=== PATIENT | female | born 1965 | race Caucasian/White ===

== ENCOUNTER 2022-11-28 07:41 | Outpatient (AMB) | payer BC, SELFPAY ==
--- NOTE | 2022-11-28 07:43 | A.OFFPC_ITS ---
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 Allergies Penicillins Allergy (Verified 11/28/22 07:47) patient does not remember Medication List - Last Reconciled 11/28/22 by Nirmala Merrill MD lisinopril 10 mg PO DAILY montelukast 10 mg PO DAILY Tobacco use date assessed: 11/28/22 Dental Screening Dental Screen Date: 11/28/22 Did you have a dental visit in the last 12 months?: Yes Did you have a dental problem in the last 6 months where you did not have access to dental care?: No Was dental information given to patient?: Patient has dentist HPI HPI Comments History of Present Illness Details Patient presents for new patient physical. She moved from [place] a year ago. She has a history of hypertension has not been compliant taking medications regularly. Patient also reports history of obstructive sleep apnea but has not been using her CPAP machine for 2 years because it was recalled. Patient complains of insomnia and used to take clonazepam but has not been taking it for the last year. Patient denies anxiety or depression. 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 1. Little interest or pleasure in doing things: several days 2. Feeling down, depressed, or hopeless: not at all 3. Trouble falling or staying asleep, or sleeping too much: nearly every day 4. Feeling tired or having little energy: nearly every day 5. Poor appetite or overeating: several days 6. Feeling bad about yourself - or that you are a failure or have let yourself or your family down: not at all 7. Trouble concentrating on things, such as reading the newspaper or watching television: not at all 8. Moving or speaking so slowly that other people could have noticed. Or the opposite - being so fidgety or restless that you have been moving around a lot more than usual: not at all 9. Thoughts that you would be better off or of hurting yourself in some way: not at all Total score: 8 Depression Screening Interpretation: Negative Source: Developed by Drs. Brandon Duffy, Maria Victoria Lynch, Holland Taveras and colleagues, with an educational fernando from [employer]. Thrive Questionnaire Date Thrive assessed: 11/28/22 I am a: Patient What is your living situation today?: I have a steady place to live Within the past 12 months, did the food you bought not last and you didn't have the money to get more?: Never true Within the past 12 months, did you worry whether your food would run out before you got money to buy more?: Never true Do you have trouble paying for medicines?: No Do you have trouble getting transportation to medical appointments?: No Do you have trouble paying your heating and electricity bill?: No Do you have trouble taking care of your child, family member or friend?: No Do you have trouble with day-to-day activities such as bathing, preparing meals, shopping, managing finances, etc.?: No Are you currently unemployed and looking for a job?: No Are you interested in more education?: No Please select the resources that you would like help with: None Currently or been in a relationship where the following occur: no concerns reported AUDIT C Alcohol Use Questionnaire (AUDIT-C) 1. How often do you have a drink containing alcohol?: 2-3 times a week 2. How many drinks containing alcohol do you have on a typical day when you are drinking?: 1 or 2 3. How often do you have six or more drinks on one occasion?: Never Total Score: 3 MAIK-7 AMB Questionnaire MAIK-7 Date MAIK - 7 assessed: 11/28/22 Feeling nervous, anxious, or on edge: 1 = Several days Not being able to stop or control worryin = Not at all Worrying too much about different things: 0 = Not at all Trouble relaxin = Several days Being so restless that it is hard to sit still: 0 = Not at all Becoming easily annoyed or irritable: 1 = Several days Feeling afraid as if something awful might happen: 0 = Not at all Total MAIK-7 score (0-4 normal; 5-9 mild; 10-14 moderate; 15-21 severe): 3 Source: Developed by Drs. Brandon Duffy, Maria Victoria Lynch, Holland Taveras and colleagues, with an educational fernando from [employer]. Review of Systems Const All systems reviewed & are unremarkable except as noted in HPI and below Reports no additional complaints Eyes Reports no additional complaints ENT Reports no additional complaints Card Reports no additional complaints Resp Reports no additional complaints GI Reports no additional complaints Reports no additional complaints Musc Reports no additional complaints Physical exam (Primary Care) Vital Signs: Last Vital Signs Pulse 88 11/28/22 07:44 BP 154/94 H 11/28/22 07:44 Pulse Ox 99 11/28/22 07:44 Oxygen Delivery Method Room Air 11/28/22 07:44 BMI result Body Mass Index 35.4 Tobacco/Smoking Status: Tobacco use Status Tobacco use date assessed 11/28/22 11/28/22 07:56 Patient Tobacco Use Status Current everyday Tobacco 11/28/22 08:18 Tobacco use type Cigarette 11/28/22 08:18 e-Cigarette/Vaping Use Former Use 11/28/22 08:18 PHQ-9: PHQ-9 Score PHQ-9: Total score 8 11/28/22 09:54 Depression Screening Interpretation: Negative Thrive Assessment: Date of Thrive Assessment Date Thrive assessed 11/28/22 11/28/22 07:56 Currently or been in a relationship where the following occur: no concerns reported Const General: no acute distress HENMT Head: Yes normal to inspection Ears: hearing grossly normal bilaterally General nose exam: Normal external nose present Mouth: Normal oral and palatal mucosa present Throat: Yes posterior oropharynx normal Eyes General: appearance normal, both eyes and all related structures Neck Neck: Yes no lymphadenopathy and Yes supple Resp Effort & Inspection: normal respiratory effort Auscultation: clear to auscultation bilaterally Cardio Rhythm: regular rhythm Heart sounds: S1 normal heart sound present and S2 normal heart sound present GI Inspection: Yes normal to inspection Palpation (GI): Soft to palpation Percussion: Yes normal to percussion Auscultation: normal bowel sounds Speculum Exam - Vagina: normal appearance of the vagina Speculum Exam - Cervix: normal appearance of the cervix Bimanual exam- vagina & uterus: normal bimanual exam Assessment and Plan Assessment & Plan (1) HTN (hypertension): Code(s): I10 - Essential (primary) hypertension Plan: Start amlodipine benazepril 5/20 daily. Low-sodium diet increase physical activity discussed with the patient . she will follow-up in 1 month (2) Insomnia: Code(s): G47.00 - Insomnia, unspecified Plan: Sleep hygiene discussed with the patient she will be referred to sleep medicine (3) Abnormal Pap smear of cervix: Comment: 2019 , negative afterwards Code(s): R87.619 - Unspecified abnormal cytological findings in specimens from cervix uteri Plan: Pap smear was done today (4) Hx of colonoscopy: Comment: colonoscopy 2019, obtain records from [place] Code(s): Z98.890 - Other specified postprocedural states Plan: Obtain records from [place] (5) Tobacco dependence: Comment: 1 PPD X 40 YRS Code(s): F17.200 - Nicotine dependence, unspecified, uncomplicated Plan: Tobacco quitting discussed with the patient she will be referred to lung cancer screening program (6) Sleep apnea: Code(s): G47.30 - Sleep apnea, unspecified Plan: Obtain sleep studies and referred to sleep medicine (7) Annual physical exam: Code(s): Z00.00 - Encounter for general adult medical examination without abnormal findings Plan: Well-balanced diet regular physical activity discussed with the patient. Ruby mogram will be scheduled. Cutting down on alcohol use discussed with the patient Orders: Orders Vitamin B12 and Folate Today F17.200 - Nicotine dependence, unspecified, uncomplicated Comprehensive [place]. Panel Fast Today F17.200 - Nicotine dependence, unspecified, uncomplicated Lipid Panel Today F17.200 - Nicotine dependence, unspecified, uncomplicated TSH reflex Free T4 Today F17.200 - Nicotine dependence, unspecified, uncomplicated Complete Blood Count Auto Diff Today F17.200 - Nicotine dependence, unspecified, uncomplicated UA CC w/rflx Micro + Cult Today F17.200 - Nicotine dependence, unspecified, uncomplicated MM screening mammo BI Today Z12.31 - Encounter for screening mammogram for malignant neoplasm of breast RT home sleep study Today G47.30 - Sleep apnea, unspecified Pap Smear Today F17.200 - Nicotine dependence, unspecified, uncomplicated Referrals Sleep Medicine Referral G47.00 - Insomnia, unspecified, G47.30 - Sleep apnea, unspecified Thoracic Surgery Referral F17.200 - Nicotine dependence, unspecified, uncomplicated Medications: New amlodipine-benazepril 5-20 mg 1 cap PO DAILY 30 caps 1RF Coding Level of Care Code New Pt Prev Care 40-64y(64443) Diagnoses HTN (hypertension) I10 Insomnia G47.00 Abnormal Pap smear of cervix R87.619 Hx of colonoscopy Z98.890 Tobacco dependence F17.200 Sleep apnea G47.30 Annual physical exam Z00.00
[2022-11-28 07:44] VITALS: BP 154/94; PULSE 88; O2SAT 99; BMI 35.4
== END 2022-11-28 08:58 | disposition home or self-care (01) ==
PROVIDERS: Visit Provider Internal Medicine
DX: Z00.00 Encounter for general adult medical examination without abnormal findings (principal); I10 Essential (primary) hypertension; G47.00 Insomnia, unspecified; R87.619 Unspecified abnormal cytological findings in specimens from cervix uteri; Z98.890 Other specified postprocedural states; F17.200 Nicotine dependence, unspecified, uncomplicated; G47.30 Sleep apnea, unspecified
CPT/HCPCS: 99386

== ENCOUNTER 2022-11-28 08:42 | Outpatient (REF) | payer BC, SELFPAY ==
[2022-12-05 21:14] LABS: HPV mRNA E6/E7 Not Detected (Not Detected)
== END 2022-11-28 08:43 | disposition home or self-care (01) ==
LOC: HO.LNP 08:42
PROVIDERS: Visit Provider Internal Medicine
DX: Z12.4 Encounter for screening for malignant neoplasm of cervix (principal)
CPT/HCPCS: 87624; 88142

== ENCOUNTER 2022-11-28 08:54 | Outpatient (REF) | payer BC, SELFPAY ==
[2022-11-28 11:19] LABS: MANUAL DIFF FLAG NO
[2022-11-28 11:29] LABS: Appearance Urine Clear; Color Urine Dark Yellow; Glucose Urine UA Negative (Negative); Leukocyte Esterase Urine Negative (Negative); Nitrite Urine Negative (Negative); PH 5.5 (5.0-9.0); Specific Gravity - Urine 1.025 (1.005-1.025); Urine Blood Negative (Negative); Urine Ketones 15 mg/dL (Negative); Urine Protein Trace mg/dL (Neg-Trace)
[2022-11-28 11:56] LABS: Basophils Absolute Auto 0.1 X10*3/uL (0.0-0.2); Basophils Percent Auto 1.8 % (0-2); Eosinophils Absolute Auto 0.1 X10*3/uL (0.0-0.4); Eosinophils Percent Auto 2.2 % (0-4); Hematocrit 49.3 % (37.0-47.0); Hemoglobin 16.5 g/dl (12.0-16.0); Imm Gran Abs Auto 0.02 X10*3/uL (0.00-0.03); Imm Gran Pct Auto 0.3 % (0.0-0.4); Lymphocytes Absolute Auto 1.8 X10*3/uL (1.2-4.9); Lymphocytes Percent Auto 27.6 % (20-40); Mean Corpuscular HGB Conc 33.5 g/dl (31.0-35.0); Mean Corpuscular Hemoglobin 32.5 pg (27.0-33.0); Mean Platelet Volume 11.9 fL (9.4-12.3); Monocytes Absolute Auto 0.6 X10*3/uL (0.1-1.2); Monocytes Percent Auto 9.4 % (2-11); Neutrophils Absolute Auto 3.8 x10*3/uL (2.0-8.3); Neutrophils Percent Auto 58.7 % (45-73); Platelet Count 194 X10*3/uL (160-400); Red Blood Count 5.08 X10*6/uL (4.20-5.50); Red Cell Distribution Width 12.9 % (11.0-16.0); White Blood Count 6.5 X10*3/uL (4.8-10.8)
[2022-11-28 13:30] LABS: Folate 6.6 ng/mL (> or = 4.0); Vitamin B12 512 pg/mL (200-900)
[2022-11-28 14:00] LABS: Alanine Aminotransferase 227 U/L (0-31); Albumin Level 4.5 g/dL (3.5-5.0); Alkaline Phosphatase 81 U/L (39-117); Anion Gap 15 (12-20); Aspartate Amino Transferase 176 U/L (5-31); Blood Urea Nitrogen 10 mg/dL (9-16); Calcium 9.9 mg/dL (8.4-10.2); Carbon Dioxide 27 mmol/L (22-29); Chloride 106 mmol/L (96-108); Cholesterol 313 mg/dL; Estimated Glomerular Filt Rate > 60; Glucose Fasting 110 mg/dL (60-99); HDL Cholesterol 122 mg/dL; LDL Cholesterol Calculated 177 mg/dl; Potassium 4.4 mmol/L (3.3-5.1); Sodium 144 mmol/L (135-145); TSH reflex Free T4 1.77 uIU/mL (0.32-4.0); Total Protein 7.5 g/dL (6.5-8.0); Triglycerides 73 mg/dL
[2022-11-28 14:50] LABS: Bilirubin Total 0.7 mg/dL (0.0-1.0)
== END 2022-11-28 08:55 | disposition home or self-care (01) ==
LOC: HO.HMGCLDS 08:54
PROVIDERS: PCP Internal Medicine; Visit Provider Internal Medicine
DX: G47.30 Sleep apnea, unspecified (principal); F17.200 Nicotine dependence, unspecified, uncomplicated
CPT/HCPCS: 36415; 80053; 80061; 81003; 82607; 82746; 84443; 85025

== ENCOUNTER 2022-12-08 06:23 | Outpatient (REF) | payer BC, SELFPAY ==
[2022-12-08 14:54] LABS: Alanine Aminotransferase 256 U/L (0-31); Albumin Level 4.5 g/dL (3.5-5.0); Alkaline Phosphatase 85 U/L (39-117); Aspartate Amino Transferase 162 U/L (5-31); Bilirubin Direct 0.3 mg/dL (0.0-0.5); Bilirubin Total 0.6 mg/dL (0.0-1.0); Total Protein 7.4 g/dL (6.5-8.0)
[2022-12-09 04:26] LABS: HBc Num1 0.08 S/CO (0.00-0.79); HBsAGNum1 0.33 S/CO (0.00-0.99); Hepatitis A Antibody IgM 0.65 Index (0-0.79); Hepatitis B Core Antibody Nonreactive (Nonreactive); Hepatitis B Surface Antigen Negative (Negative); ~HepC Num1 0.09 S/CO (0.00-0.79); ~Hepatitis A Antibody IgM Nonreactive (Nonreactive); ~Hepatitis B Surface Antibody NONREACTIVE (Nonreactive); ~Hepatitis C Antibody Nonreactive (Nonreactive)
[2022-12-13 13:03] LABS: Alpha Fetoprotein 5.5 ng/mL
[2022-12-14 23:13] LABS: Liver Kidney Microsomal Ab <=20.0 U (<=20.0)
[2022-12-18 11:37] LABS: Anti Nuclear Antibody Screen NEGATIVE (NEGATIVE)
== END 2022-12-08 06:24 | disposition home or self-care (01) ==
LOC: HO.HMGCLDS 06:23
PROVIDERS: PCP Internal Medicine; Visit Provider Internal Medicine
DX: R79.89 Other specified abnormal findings of blood chemistry (principal)
CPT/HCPCS: 36415; 80076; 82105; 86038; 86376; 86704; 86706; 86709; 86803; 87340

== ENCOUNTER 2022-12-14 08:04 | Outpatient (REF) | payer BC, SELFPAY ==
--- NOTE | ~2022-12-14 | US_ITS ---
EXAMINATION: US ABDOMEN LIMITED CLINICAL INFORMATION: Other specified abnormal findings of blood chemistry. COMPARISON: None available. TECHNIQUE: Real-time imaging of the right upper quadrant abdominal viscera. FINDINGS: PANCREAS: Visualized portions of the pancreas are unremarkable. The pancreatic tail is obscured by bowel gas. LIVER: The liver is normal in size. The liver contour is normal. Increased hepatic echogenicity which can be seen in the setting of hepatic steatosis or underlying liver disease. No focal hepatic lesion. There is no intrahepatic biliary duct dilatation seen. GALLBLADDER: Normal. The gallbladder is physiologically distended without evidence of stones, sludge, polyps, wall thickening or pericholecystic fluid. COMMON BILE DUCT: Normal in caliber measuring 2.8 cm in diameter. RIGHT KIDNEY: Normal. No hydronephrosis. No renal calculi or focal parenchymal lesions. The kidney measures 10.1 cm in maximum dimension. FREE FLUID: None. US/US abdomen limited IMPRESSION: 1. Increased hepatic echogenicity which can be seen in the setting of hepatic steatosis or underlying liver disease.
== END 2022-12-14 08:05 | disposition home or self-care (01) ==
LOC: HO.US 08:04
PROVIDERS: PCP Internal Medicine; Visit Provider Internal Medicine
DX: R79.89 Other specified abnormal findings of blood chemistry (principal)
CPT/HCPCS: 76705

== ENCOUNTER 2022-12-20 07:18 | Outpatient (REF) | payer BC, SELFPAY ==
--- NOTE | ~2022-12-20 | MM_ITS ---
EXAMINATION: MM SCREENING DIGITAL BREAST TOMOSYNTHESIS, BILATERAL CLINICAL INFORMATION: Screening. Asymptomatic. COMPARISON: Mammography: There are no prior studies available for comparison. TECHNIQUE: Digital breast tomosynthesis is performed in both the craniocaudal and mediolateral oblique views along with computer-aided detection (CAD). Synthesized 2D images are generated from the tomosynthesis. FINDINGS: There are scattered areas of fibroglandular density (ACR BI-RADS breast composition Category b). There are no significant masses, abnormal calcifications, or other abnormalities. MM/MM tomosynthesis screening BI IMPRESSION: No mammographic evidence of malignancy. ASSESSMENT: BI-RADS BI-RADS 1 - Negative RECOMMENDATION: Routine annual mammography screening. 1 year F/U This examination should not preclude the clinical evaluation of a suspicious palpable abnormality. This patient's information was entered into a reminder system with a target due date for their next mammogram.
== END 2022-12-20 07:19 | disposition home or self-care (01) ==
LOC: HO.MAMMO 07:18
PROVIDERS: PCP Internal Medicine; Visit Provider Internal Medicine
DX: Z12.31 Encounter for screening mammogram for malignant neoplasm of breast (principal)
CPT/HCPCS: 77063; 77067

== ENCOUNTER → 2022-12-20 07:30 | Outpatient (BNV) | payer BC, SELFPAY | PROVIDERS: PCP Internal Medicine; Visit Provider Radiology Diagnostic Radiology | DX: Z12.31 Encounter for screening mammogram for malignant neoplasm of breast (principal) | CPT/HCPCS: 77063; 77067 ==

== ENCOUNTER 2022-12-28 12:44 | Outpatient (AMB) | payer BC, SELFPAY ==
[2022-12-28 13:01] VITALS: BP 142/84; PULSE 90; O2SAT 97; BMI 34.5
--- NOTE | 2022-12-28 13:01 | A.OFFPC_ITS ---
Vital Signs 12/28/22 13:01 Height 5 ft 3 in Weight 195 lb BMI 34.5 BP 142/84 H Blood Pressure Location Lt brachial Position Sitting Pulse 90 Pulse Source Pulse Oximeter Pulse Oximetry (%) 97 Oxygen Delivery Method Room Air Intake Visit Reasons: 1M Follow up on BP medication Intake Note: Pt is here today for 1 month follow up visit on BP. Allergies Penicillins Allergy (Verified 12/28/22 13:03) patient does not remember Medication List - Last Reconciled 12/28/22 by Nirmala Merrill MD amlodipine-benazepril 5-20 mg 1 cap PO DAILY montelukast 10 mg PO DAILY Tobacco use date assessed: 12/28/22 HPI 1M Follow up on BP medication HPI Details Pt presents for f/u HTN. Pt tolerates Lotrel well. Patient quit smoking but has been vaping trying to cut down. The in cutting down on alcohol intake down to 3 drinks a day. 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, 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 Housing: Apartment Patient Tobacco Use Status: Former Tobacco user (2 weeks) Tobacco use type: Cigarette Cigarette Packs Per Day: 1 Cigarettes Per Day: 20 e-Cigarette/Vaping Use: Former Use service: No Current occupational status: employed Cognitive needs: No Hearing needs: No Vision needs: Yes Questionnaire Thrive Questionnaire Date Thrive assessed: 11/28/22 I am a: Patient What is your living situation today?: I have a steady place to live Within the past 12 months, did the food you bought not last and you didn't have the money to get more?: Never true Within the past 12 months, did you worry whether your food would run out before you got money to buy more?: Never true Please select the resources that you would like help with: None AUDIT C Alcohol Use Questionnaire (AUDIT-C) 1. How often do you have a drink containing alcohol?: 4 or more times a week 2. How many drinks containing alcohol do you have on a typical day when you are drinking?: 3 or 4 3. How often do you have six or more drinks on one occasion?: Weekly Total Score: 8 MAIK-7 AMB Questionnaire MAIK-7 Date MAIK - 7 assessed: 11/28/22 Feeling nervous, anxious, or on edge: 0 = Not at all Not being able to stop or control worryin = Several days Worrying too much about different things: 1 = Several days Trouble relaxin = Several days Being so restless that it is hard to sit still: 1 = Several days Becoming easily annoyed or irritable: 1 = Several days Feeling afraid as if something awful might happen: 1 = Several days Total MAIK-7 score (0-4 normal; 5-9 mild; 10-14 moderate; 15-21 severe): 6 Source: Developed by Drs. Brandon Duffy, Maria Victoria Lynch, Holland Taveras and colleagues, with an educational fernando from [employer]. Review of Systems Const All systems reviewed & are unremarkable except as noted in HPI and below Reports no additional complaints Eyes Reports no additional complaints ENT Reports no additional complaints Card Reports no additional complaints Resp Reports no additional complaints GI Reports no additional complaints Physical exam (Primary Care) Vital Signs: Last Vital Signs Pulse 90 12/28/22 13:01 BP 142/84 H 12/28/22 13:01 Pulse Ox 97 12/28/22 13:01 Oxygen Delivery Method Room Air 12/28/22 13:01 BMI result Body Mass Index 34.5 Tobacco/Smoking Status: Tobacco use Status Tobacco use date assessed 12/28/22 12/28/22 13:05 Patient Tobacco Use Status Former Tobacco user (2 weeks 12/28/22 13:05 ) Tobacco use type Cigarette 12/28/22 13:02 e-Cigarette/Vaping Use Former Use 12/28/22 13:02 Thrive Assessment: Date of Thrive Assessment Date Thrive assessed 11/28/22 12/28/22 13:02 Const General: no acute distress [facility] General nose exam: Normal external nose present Resp Effort & Inspection: normal respiratory effort Auscultation: diminished lung sounds Cardio Rhythm: regular rhythm Heart sounds: S1 normal heart sound present and S2 normal heart sound present GI Inspection: Yes normal to inspection Palpation (GI): Soft to palpation Assessment and Plan Assessment & Plan (1) Elevated LFTs: Comment: Live ultrasound consistent with chronic liver disease/ fatty liver 12/27 Code(s): R79.89 - Other specified abnormal findings of blood chemistry Plan: Patient was advised to stop drinking alcohol she will return in 4 months with a fasting labs before including liver function (2) HTN (hypertension): Code(s): I10 - Essential (primary) hypertension Plan: Continue Lotrel (3) Hyperlipemia: Code(s): E78.5 - Hyperlipidemia, unspecified Plan: Low-cholesterol diet increase physical activity discussed with the patient. she will return in 4 months with a fasting labs before (4) Dysplastic nevi: Code(s): D23.9 - Other benign neoplasm of skin, unspecified Plan: Referred to dermatology Orders: Orders Ceruloplasmin 4 Months E78.5 - Hyperlipidemia, unspecified, I10 - Essential (primary) hypertension, R79.89 - Other specified abnormal findings of blood chemistry Comprehensive [place]. Panel Fast 4 Months E78.5 - Hyperlipidemia, unspecified, I10 - Essential (primary) hypertension, R79.89 - Other specified abnormal findings of blood chemistry Lipid Panel 4 Months E78.5 - Hyperlipidemia, unspecified, I10 - Essential (primary) hypertension, R79.89 - Other specified abnormal findings of blood chemistry Complete Blood Count Auto Diff 4 Months E78.5 - Hyperlipidemia, unspecified, I10 - Essential (primary) hypertension, R79.89 - Other specified abnormal findings of blood chemistry IRON PROFILE 4 Months E78.5 - Hyperlipidemia, unspecified, I10 - Essential (primary) hypertension, R79.89 - Other specified abnormal findings of blood chemistry Referrals Dermatology Referral D23.9 - Other benign neoplasm of skin, unspecified Medications: Refilled amlodipine-benazepril 5-20 mg 1 cap PO DAILY 90 caps 3RF Coding Level of Care Code Est Pt Level 4 (61729) Diagnoses Elevated LFTs R79.89 HTN (hypertension) I10 Hyperlipemia E78.5 Dysplastic nevi D23.9
== END 2022-12-28 13:57 | disposition home or self-care (01) ==
PROVIDERS: PCP Internal Medicine; Visit Provider Internal Medicine
DX: R79.89 Other specified abnormal findings of blood chemistry (principal); I10 Essential (primary) hypertension; E78.5 Hyperlipidemia, unspecified; D23.9 Other benign neoplasm of skin, unspecified
CPT/HCPCS: 99214

== ENCOUNTER 2023-03-02 14:47 | Outpatient (AMB) | payer BC, SELFPAY ==
--- NOTE | 2023-03-02 07:55 | A.OFFVIS_ITS ---
Intake Intake Visit Reasons: LDCT SD Allergies Penicillins Allergy (Verified 12/28/22 13:03) patient does not remember HPI LDCT SD HPI Details Initial visit for this 57yo former smoker with a 40PYH. Patient has been smoking since age 17 for 40 years at 1ppd. She quit 2 months ago 12/2022 - using vape pen. . Denies marijuana use. Denies second hand smoke exposure. Denies exposure to chemicals or substances like asbestos. . Denies known family history of lung cancer. Denies personal history of cancers. Denies chest CT in last year. . Denies recent travel outside the [place]. Denies recent respiratory illness or recent hospitalization for respiratory issues. Denies testing positive for COVID. Denies receiving COVID Vaccine. . Denies fever, chills, new/worsening cough, hemoptysis, hoarseness or dysphagia. Denies significant chest pain, significant dyspnea or unintentional weight loss. Patient Lung Cancer Screening Questionnaire reviewed with patient by provider. . Shared Decision Making Completed. Patient meets criteria. Discussed in detail with patient, the risk vs benefit of LDCT screening. Patient consents to proceed with scan. Discussed smoking cessation. 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, 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, 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 Housing: Apartment Patient Tobacco Use Status: Former Tobacco user (2 weeks) Tobacco use type: Cigarette Cigarette Packs Per Day: 1 Cigarettes Per Day: 20 Years Smoked: onset 17yo, 1ppd x 40yrs, 40pyh- quit 12/2022 e-Cigarette/Vaping Use: Former Use service: No Current occupational status: employed Cognitive needs: No Hearing needs: No Vision needs: Yes Assessment & Plan Assessment & Plan (1) Nicotine dependence, cigarettes, uncomplicated: Comment: (onset 17yo, 1ppd x 40yrs, 40pyh - quit 12/2022) Code(s): F17.210 - Nicotine dependence, cigarettes, uncomplicated Plan: - SDM visit completed today in office. - Patient meets criteria for LDCT for lung cancer screening purposes and is asymptomatic. - Smoking cessation counseling offered. Patients can always call [phone]. - Will arrange for a LDCT scan of the chest for screening purposes at [facility]. - Risks, benefits, and alternatives were discussed in detail and the patient a grees to proceed. - Risks discussed include but are not limited to: radiation exposure, anxiety during testing and while awaiting results, false negatives, false positives and possibility of additional intervention such as further imaging or surgical procedures for benign disease. - Benefits are obviously detection of lung cancer at an early stage which can lead to improved outcomes. - Discussed the importance of screening program compliance with adherence to yearly LDCT scan as scheduled - or sooner interval scans for personalized screening regimen. - Discussed follow up plan. Our office will send a letter discussing results and if needed set up phone call and office visit based on CT findings. - Patient educated on results categorization and the management decisions for suspicious findings potentially found on the screening LDCT scan. Any patient with a Lung RADS score of 3 or 4 will be reviewed by a multidisciplinary team at [facility] to form a plan of action in regards to scan findings. - If further work up is warranted for a suspicious lung finding this will be followed by the Lung Cancer Screening program in conjunction with the Thoracic Surgery Department at [facility]. - A copy of the office note and LDCT will be sent to the patient's PCP - as well as documentation on any associated further plans of care. - Incidental findings on LDCT are the PCP's responsibility. These findings are indicated with an S finding on the LDCT Assessment. A note discussing the findings will be sent to the PCP who is then responsible for further management. - All questions answered.? Coding Level of Care Code Lung Cancer Screening G0296 Diagnoses Nicotine dependence, cigarettes, uncomplicated F17.210
== END 2023-03-02 15:32 | disposition home or self-care (01) ==
PROVIDERS: PCP Internal Medicine; Visit Provider Physician Assistant Medical
DX: F17.210 Nicotine dependence, cigarettes, uncomplicated (principal)
CPT/HCPCS: G0296

== ENCOUNTER 2023-03-02 15:14 | Outpatient (REF) | payer BC, SELFPAY ==
--- NOTE | ~2023-03-02 | CT_ITS ---
EXAMINATION: CT CHEST SCREENING CLINICAL INFORMATION: Current smoker. 40 pack year history. COMPARISON: None available. TECHNIQUE: Multidetector volumetric CT imaging of the chest is performed without contrast using low dose technique. Additional 2D coronal and sagittal reformatted images and axial 3D maximum intensity projection (MIP) images are generated on the CT workstation. This CT examination was performed using dose optimization techniques as appropriate, variously including the following: *Automated exposure control *Adjustment of mA and/or kV according to patient size (this includes techniques or standardized protocols for targeted exams where dose is matched to indication/reason for exam; i.e. extremities or head) *Use of iterative reconstruction technique DLP: 61 mGy-cm FINDINGS: LUNGS: 2 cm heterogeneous predominantly groundglass attenuation peripheral left upper lobe nodule axial image 192 series 5. This has a more inferior solid component measuring 0.7 x 1.4 cm axial image 204 series 5. There is a separate adjacent satellite groundglass attenuation more inferior medial 1 cm nodule axial image 211 series 5. 2 mm calcified right lower lobe nodule axial image 334 series 5. MEDIASTINUM: The mediastinum is normal. CORONARY ARTERY CALCIFICATION: None visualized on this study. PLEURA: There is no pleural effusion. No pleural mass or thickening. AXILLA: No lymphadenopathy. UPPER ABDOMEN: Fatty liver. OSSEOUS STRUCTURES: Mild scoliosis and degenerative changes of the spine. CT/CT lung screening IMPRESSION: 2 cm heterogeneous partially groundglass attenuation partially solid left upper lobe nodule and adjacent more inferior medial 1 cm groundglass attenuation nodule. ASSESSMENT: Lung-RADS category 4B: Suspicious RECOMMENDATION: PET CT, tissue sampling or short-term follow-up chest recommended. Findings will be communicated by the [facility] workflow moisture tester
== END 2023-03-02 15:15 | disposition home or self-care (01) ==
LOC: HO.CT 15:14
PROVIDERS: PCP Internal Medicine; Visit Provider Physician Assistant Medical
DX: Z12.2 Encounter for screening for malignant neoplasm of respiratory organs (principal); F17.210 Nicotine dependence, cigarettes, uncomplicated
CPT/HCPCS: 71271; G0296

== ENCOUNTER 2023-03-26 08:13 | Outpatient (AMB) | payer BC, SELFPAY ==
--- NOTE | 2023-03-26 08:29 | MHC.OFFVIS ---
Intake Vital Signs 03/26/23 08:37 Height 5 ft 3 in Weight 205 lb BMI 36.3 BP 141/78 H Blood Pressure Location Rt brachial Position Sitting Pulse 86 Intake Visit Reasons: left lung mass Intake Note: Patient referred for Lt lung mass. Lung CT 03-02-23. Denies shortness of breath. 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 She was referred for the scanned through her medical doctor. She herself has no respiratory issues or complaints. She denies any cough, chest pain, hemoptysis, or wheezing. Patient has a very significant smoking history. One pack per day for over 40 years. She has discontinued smoking approximately 3 months ago. Otherwise her weight is stable, energy is good. Appetite is good. Chart was reviewed patient evaluated [facility] Medical History (Updated 03/02/23 @ 15:07 by Shiela Lynn PA-C) HTN (hypertension) Hyperlipemia Sleep apnea Elevated LFTs Obesity Nicotine dependence, cigarettes, uncomplicated Insomnia History of abnormal cervical Pap smear (~2019) Surgical History (Updated 03/26/23 @ 09:05 by Morro Garcia MD) History of colonoscopy History of History of surgery on left wrist Family History Father Dementia Mother Hypertension Colon cancer, Onset Age: 74 Social History (Updated 03/26/23 @ 08:36 by ESTEPHANIA Xiong) Household Members Other:: 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, 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, 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, 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, 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 Housing: Apartment Alcohol intake: current Alcohol intake frequency: a few times a week Alcohol type: hard liquor Patient Tobacco Use Status: Former Tobacco user (2 weeks) Quit Date: December 2022 Tobacco use type: Cigarette Cigarette Packs Per Day: 1 Cigarettes Per Day: 20 Years Smoked: onset 17yo, 1ppd x 40yrs, 40pyh- quit 12/2022 e-Cigarette/Vaping Use: Former Use service: No Current occupational status: employed Cognitive needs: No Hearing needs: No Vision needs: Yes Physical Exam Vital Signs: Last Vital Signs Pulse 86 11/20/23 08:37 BP 141/78 H 03/26/23 08:37 BMI result Body Mass Index 36.3 Const Other: Very pleasant but extremely anxious apprehensive female. Neck Other: No gross cervical periclavicular or axillary adenopathy bilaterally. Chest Other: Chest breath sounds bilaterally, HS 1 in 2 GI Other: Abdomen moderately corpulent, soft, benign Assessment & Plan Assessment & Plan (1) Pulmonary nodule: Comment: (WANDA nodule - 2cm GGA with 0.7x1.4cm solid component on 03/02/23 LDCT) Code(s): R91.1 - Solitary pulmonary nodule Plan I discussed with the patient that her scan was presented at the multidisciplinary Lung Cancer screening conference. The consensus of opinion is that this is a suspicious lesion in combination with her significant smoking history and that patient should be evaluated for at the very least wedge resection. Depending on frozen section results will determine further interventions. More operative detail will be discussed with the patient once her pulmonary function tests are complete, which were ordered for April 24 we will see if we can get them sooner. She will see me after the studies. All questions were answered. Coding Level of Care Code New Pt Level 5 (71465) Diagnoses Pulmonary nodule R91.1
[2023-03-26 08:37] VITALS: BP 141/78; PULSE 86; BMI 36.3
== END 2023-03-26 08:58 | disposition home or self-care (01) ==
PROVIDERS: PCP Internal Medicine; Visit Provider Surgery
DX: R91.1 Solitary pulmonary nodule (principal)
CPT/HCPCS: 99204

== ENCOUNTER → 2023-03-26 08:13 | Outpatient (BNVA) | payer BC, SELFPAY | PROVIDERS: PCP Internal Medicine; Visit Provider Surgery ==

== ENCOUNTER 2023-03-27 13:45 | Outpatient (REF) | payer BC, SELFPAY ==
--- NOTE | 2023-03-27 14:33 | PFT_ITS ---
FLOWS: 1. FEV1 100% of predicted at 2.78 L. 2. FVC 96% of predicted at 3.58 L. 3. FEV1 to FVC ratio of 0.78. 4. No bronchodilator response. LUNG VOLUMES: 1. Total lung capacity 104% of predicted at 5.15 L. 2. Residual volume 81% of predicted at 1.31 L. 3. Slow vital capacity 114% of predicted at 3.84 L. 4. Expiratory reserve volume 33% of predicted at 0.38 L. 5. Diffusion capacity is normal. IMPRESSION: No obstructive or restrictive ventilatory defect. No bronchodilator response. Decreased expiratory reserve volume suggests extrathoracic restriction likely secondary to abdominal obesity. Milan Frazier MD AP/MODL / [id number]
== END 2023-03-27 13:46 | disposition home or self-care (01) ==
LOC: HO.RESP 13:45
PROVIDERS: PCP Internal Medicine; Visit Provider Physician Assistant Medical
DX: R91.1 Solitary pulmonary nodule (principal); F17.210 Nicotine dependence, cigarettes, uncomplicated
CPT/HCPCS: 94010; 94727; 94729

== ENCOUNTER → 2023-03-27 14:33 | Outpatient (BNV) | payer BC, SELFPAY | PROVIDERS: PCP Internal Medicine; Visit Provider Internal Medicine Pulmonary Disease | DX: R91.1 Solitary pulmonary nodule (principal); F17.210 Nicotine dependence, cigarettes, uncomplicated | CPT/HCPCS: 94060; 94727; 94729 ==

== ENCOUNTER 2023-04-03 08:41 | Outpatient (AMB) | payer BC, SELFPAY ==
[2023-04-03 08:46] VITALS: BMI 35.8
--- NOTE | 2023-04-03 08:46 | A.OFFVIS_ITS ---
Intake Vital Signs 04/03/23 08:46 Height 5 ft 3 in Weight 202 lb 6.15 oz BMI 35.8 Intake Visit Reasons: Left lung mass, PFT results Intake Note: Patient referred by Shiela Lynn PA-C for lt lung mass. Patient recent PFT by Dr. Frazier on 03-27-23. CT lung screening on 03-02-23. 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 Results of pulmonary function tests were actually not too bad. Patient is still quite anxious but better than 1st visit. 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 Assessment & Plan Assessment & Plan (1) Pulmonary nodule: Comment: (WANDA nodule - 2cm GGA with 0.7x1.4cm solid component on 03/02/23 LDCT) Code(s): R91.1 - Solitary pulmonary nodule Plan Risks, benefits, alternatives of fluoroscopic possible open left upper lobe wedge resection with possible lobectomy were reviewed with the patient and included but not limited to bleeding, infection, recurrence, numbness, pain, scarring and the patient wished to proceed. All questions were answered. She is to continue her not smoking , which has been over 3 months now. Arrangements will be made on a day which is convenient for the patient. Coding Level of Care Code Est Pt Level 5 (95610) Diagnoses Pulmonary nodule R91.1
== END 2023-04-03 08:57 | disposition home or self-care (01) ==
PROVIDERS: PCP Internal Medicine; Visit Provider Surgery
DX: R91.1 Solitary pulmonary nodule (principal)
CPT/HCPCS: 99214

== ENCOUNTER → 2023-04-03 08:41 | Outpatient (BNVA) | payer BC, SELFPAY | PROVIDERS: PCP Internal Medicine; Visit Provider Surgery ==

== ENCOUNTER → 2023-04-16 14:30 | Outpatient (BNV) | payer BC, SELFPAY | PROVIDERS: Admitting Provider Surgery; PCP Internal Medicine; Visit Provider Internal Medicine Cardiovascular Disease | DX: R94.31 Abnormal electrocardiogram [ECG] [EKG] (principal) | CPT/HCPCS: 93010 ==

== ENCOUNTER 2023-04-19 13:14 | Outpatient (AMB) | payer BC, SELFPAY ==
[2023-04-19 13:20] VITALS: BP 140/90; PULSE 69; BMI 37.9
--- NOTE | 2023-04-19 13:20 | MHC.OFFVIS ---
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 She has a pulmonary nodule which needs resection and she is seeing thoracic surgery. She had an EKG performed previously which showed poor R-wave progression and concern for anteroseptal infarct. She is a smoker and had 40 pack year smoking history and quit smoking 4 months ago. No strong family history of coronary disease. She has hypertension and recently started taking medications and is taking amlodipine and benazepril combination and blood pressure is still mildly elevated. She can walk couple of blocks without stopping. She is denying any chest discomfort shortness of breath. She is not diabetic or has renal disease. She is going to operating room on SundayApril 23. 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, 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, 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 Housing: Apartment Are you a primary critical care unit nurse to a significant other at home: No Do you presently have visiting nurse or other home services: No Alcohol intake: current Alcohol intake frequency: a few times a week Alcohol type: hard liquor Patient Tobacco Use Status: Former Tobacco user Quit Date: December 2022 Tobacco use type: Cigarette Cigarette Packs Per Day: 1 Cigarettes Per Day: 20 Years Smoked: onset 17yo, 1ppd x 40yrs, 40pyh- quit 12/2022 e-Cigarette/Vaping Use: Former Use service: No Current occupational status: employed Cognitive needs: No Hearing needs: No Vision needs: Yes Review of Systems Const Reports chills, Reports fatigue, Reports fever(s), Reports frequent falls, Reports weakness, Reports weight gain and Reports weight loss ENT Reports dizziness Card Reports chest pain, Reports leg edema, Reports lightheadedness, Reports palpitations, Reports dyspnea and Reports dyspnea on exertion Resp Reports cough, Reports dyspnea and Reports dyspnea on exertion GI Reports hematochezia Musc Reports abnormal gait, Reports muscle weakness, Reports numbness, Reports radiating pain into limb and Reports tingling Neuro Reports abnormal gait, Reports dizziness, Reports frequent falls, Reports numbness, Reports tingling and Reports weakness Endo Reports fatigue and Reports palpitations Physical Exam Vital Signs: Last Vital Signs Pulse 69 04/19/23 13:20 BP 140/90 H 04/19/23 13:20 BMI result Body Mass Index 37.9 GENERAL APPEARANCE: in no acute distress, pleasant. NECK: no carotid bruit, no jugular venous distention. SKIN: no suspicious lesions, warm and dry. HEART: no murmurs, regular rate and rhythm. LUNGS: clear to auscultation bilaterally. ABDOMEN: soft, nontender. EXTREMITIES: no edema. PERIPHERAL PULSES: equal. NEUROLOGIC: No gross deficits, AAO X 3 Office Procedures EKG Details: Sinus rhythm 69 beats per minute, axis, nonspecific ST-T changes, QTC 460 milliseconds. [id number], Complete Assessment & Plan Assessment & Plan (1) HTN (hypertension): Code(s): I10 - Essential (primary) hypertension (2) Abnormal EKG: Code(s): R94.31 - Abnormal electrocardiogram [ECG] [EKG] (3) Preop cardiovascular exam: Code(s): Z01.810 - Encounter for preprocedural cardiovascular examination Plan Pleasant 57-year-old female who is here for perioperative cardiovascular risk assessment. She has pulmonary nodule and needs resection with thoracic surgery. She had an EKG performed as outpatient showed poor R-wave progression and concern for anterior infarct. I think this was due to lead positioning because we repeated the EKG in our office and we can see that there is no obvious evidence of previous infarction. Clinically she is stable and intermediate risk for perioperative cardiovascular complications. She can proceed with surgery. We will gather more information with an echocardiogram to assess the ejection fraction and wall motion. Thank you for allowing me to participate in the care of your patient. Please feel free to contact me if you have any questions. Orders: Orders CA echo transthoracic complete Today R94.31 - Abnormal electrocardiogram [ECG] [EKG] Coding Level of Care Code New Pt Level 4 (55834) Diagnoses HTN (hypertension) I10 Abnormal EKG R94.31 Preop cardiovascular exam Z01.810 CPT Codes EKG - CPT: 40987-[id number], Complete ([id number])
== END 2023-04-19 13:44 | disposition home or self-care (01) ==
PROVIDERS: PCP Internal Medicine; Visit Provider Internal Medicine Cardiovascular Disease
DX: I10 Essential (primary) hypertension (principal); R94.31 Abnormal electrocardiogram [ECG] [EKG]; Z01.810 Encounter for preprocedural cardiovascular examination
CPT/HCPCS: 93010; 99214

== ENCOUNTER → 2023-04-19 13:14 | Outpatient (BNVA) | payer BC, SELFPAY | PROVIDERS: PCP Internal Medicine; Visit Provider Internal Medicine Cardiovascular Disease | DX: Z01.810 Encounter for preprocedural cardiovascular examination (principal); R94.31 Abnormal electrocardiogram [ECG] [EKG]; I10 Essential (primary) hypertension | CPT/HCPCS: 93005 ==

== ENCOUNTER → 2023-04-20 09:47 | Outpatient (REF) | payer BC, SELFPAY ==
--- NOTE | 2023-04-20 09:53 | CA_ITS ---
Transthoracic Echocardiogram Patient (Last, First, Middle): Bee Archer, Gender: Female Date of : 1965 Age: 57 Procedure Date: 04/20/2023 Procedure Type: Transthoracic Echocardiogram Location: OP Height: 160.02 cm Weight: 90.72 kg BSA: 1.93 m2 Heart Rate: 64 bpm BP: 138 / 80 mmHg Bi Application Developer: SAI Referring MD: Reinaldo Hernandez MD Symptoms: ABN EKG R94.31 Study Quality: Adequate ECG Rhythm: Sinus Conclusions: - Normal left ventricular cavity size. There is mildly increased left ventricular wall thickness. The left ventricular systolic function is hyperdynamic. The visually estimated ejection fraction is >70%. - Normal right ventricular cavity size and systolic function. - There is mild dilatation of the sinuses of Valsalva measuring 3.50 cm and mild dilatation of the ascending aorta measuring 3.60 cm. Findings Left Ventricle Normal left ventricular cavity size. There is mildly increased left ventricular wall thickness. The left ventricular systolic function is hyperdynamic. The visually estimated ejection fraction is >70%. There is no evidence of regional wall motion abnormalities. Diastolic function is normal for age. Normal strain -18%. Right Ventricle Normal right ventricular cavity size and systolic function. Atria The left atrium is normal in size. Aortic Valve Normal aortic valve structure and function. There is no aortic valve stenosis. There is no aortic valve regurgitation. Mitral Valve The mitral valve appears normal. There is no mitral valve regurgitation. There is no mitral valve stenosis. Pulmonic Valve The pulmonic valve is likely normal. Tricuspid Valve Normal tricuspid valve structure. There is trace tricuspid valve regurgitation. Tricuspid regurgitation envelope is inadequate for calculation of right ventricular systolic pressure. Normal right atrial pressure. Great Vessels There is mild dilatation of the sinuses of Valsalva measuring 3.50 cm and mild dilatation of the ascending aorta measuring 3.60 cm. The visualized portions of the pulmonary artery and branches are normal. Venous The inferior vena cava is normal in size and collapses greater than 50% with inspiration. Pericardium/Pleural There is no evidence of pericardial effusion. Prior Study Comparison No prior study available for comparison. Measurements 2D Linear Measurements IVSd: 1.08 0.6-0.9/0.6-1.0 cm LVIDd: 3.40 3.9-5.3/4.2-5.9 cm LVIDd Index: 1.76 2.4-3.2/2.2-3.1 cm/m2 LVIDs: 2.05 2.0-3.6 cm LVPWd: 1.07 0.7-1.1 cm LA Diam: 3.40 2.7-3.8/3.0-4.0 cm LAIDs Index: 1.76 1.5-2.3 cm/m2 LV Mass: 136.92 67-162/88-224 g LV Mass Index: 70.94 43-95/49-115 g/m2 LVOT Diam: 2.10 3.0+(-)1.3 cm 2D Systolic Function EF 4C: 63.70 >55% EF 2C: 61.20 >55% EF BiP: 60.50 >55% Mitral Valve MV Pk E: 0.64 MV PK A: 0.80 MV Decel Time: 236.00 E/A: 0.80 E'Lateral: 7.83 E'Medial: 6.20 E/E' Med: 10.40 E/E' Lat: 8.20 PHT: 69.00 MVA PHT: 3.19 Decel Drew: 2.72 Aortic Valve AoV Pk Dakota: 1.28 AoV Mn Dakota: 0.99 AoV VTI: 0.29 AoV Pk Grad: 7.00 Aov Mn Grad: 4.00 GRAYSON Cont.VTI: 3.05 LVOT LVOT Pk [place]: 1.10 LVOT Mn [place]: 0.79 LVOT VTI: 0.26 LVOT Pk Grad: 5.00 LVOT Mn Grad: 3.00 LVOT Diam: 2.10 LVOT Area: 3.46 Diastolic Function MV Pk E: 0.64 MV Pk A: 0.80 E/A: 0.80 E'Medial: 6.20 E/E' Med: 10.40 E' Laterial: 7.83 E/E' Lat: 8.20 Right Ventricle TAPSE (mm): 17.80 TVS' [place]: 12.30 Tricuspid Valve RA Press: 3.00 Great Vessels Aorta Sinus of Valsalva: 3.50 2.0-3.5 cm Ao Asc: 3.60 2.1-3.4 cm Pulmonary Valve PV Pk Dakota: 0.99 Peak PV Grad: 4.00 Updated in Other Vendor System with Status of Final Reinaldo Hernandez MD electronically signed on 04/20/2023 3:21:28 PM with status of Final
== END ==
LOC: HO.CARD 09:47
PROVIDERS: PCP Internal Medicine; Visit Provider Internal Medicine Cardiovascular Disease
DX: R94.31 Abnormal electrocardiogram [ECG] [EKG] (principal)
CPT/HCPCS: 93306; 93356

== ENCOUNTER → 2023-04-20 09:53 | Outpatient (BNV) | payer BC, SELFPAY | PROVIDERS: PCP Internal Medicine; Visit Provider Internal Medicine Cardiovascular Disease | DX: R94.31 Abnormal electrocardiogram [ECG] [EKG] (principal) | CPT/HCPCS: 93306 ==

== ENCOUNTER 2023-04-23 10:49 | Inpatient (IN) | payer BC, SELFPAY ==
--- NOTE | 2023-04-16 | ECG_ITS ---
Test Reason : PREOP Blood Pressure : / mmHG Vent. Rate : 071 BPM Atrial Rate : 071 BPM P-R Int : 154 ms QRS Dur : 080 ms QT Int : 414 ms P-R-T Axes : 044 018 038 degrees QTc Int : 449 ms Normal sinus rhythm Possible Inferior infarct , age undetermined Cannot rule out Anterior infarct , age undetermined Abnormal ECG No previous ECGs available Referred By: Leighann Sen Electronically Signed By:Reinaldo Hernandez
[2023-04-16 13:46] VITALS: BP 177/89; PULSE 93; RESP 18; O2SAT 97; BMI 36.3
--- NOTE | 2023-04-16 13:59 | P.CONAN_ITS ---
Documented by User: Leighann Sen NP 04/20/23 08:18 HPI - Anesthesia Eval Consult details Narrative: 57yo F for Left Thoracoscopy w/Video Assist, possible left side upper lobe with lung wedge possible lobectomy, Bronchoscopy Fiberoptic Abnormal EKG at [facility]. Sent for cardiac optimization. Per 04/19/23 cardiac office visit: She had an EKG performed as outpatient showed poor R-wave progression and concern for anterior infarct. I think this was due to lead positioning because we repeated the EKG in our office and we can see that there is no obvious evidence of previous infarction. Clinically she is stable and intermediate risk for perioperative cardiovascular complications. She can proceed with surgery. No recent illness No CP/SOB with walking ~ 1 mile BP up at [facility]. Monitors at home and usually lower. Will bring BP log DOS ETOH 3-4 cocktails most days. Patient slowly decreasing intake. Encouraged decreased intake prior to surgery. No smoking ~4 months. Currently vaping. Planning on quitting DOS. GERD. Tums prn. PMFSH Active Problems Active Problems: All Active Problems (Updated 04/16/23 @ 13:42 by Nahomy Mohamud RN) Pulmonary nodule (Acute) Elevated fasting blood sugar (Acute) Dysplastic nevi (Acute) HTN (hypertension) (Acute) Hyperlipemia (Acute) Elevated LFTs (Acute) Sleep apnea (Acute) Insomnia (Acute) Nicotine dependence, cigarettes, uncomplicated (Acute) Past Medical History Medical History Back pain GERD (gastroesophageal reflux disease) Anxiety History of abnormal cervical Pap smear (~2019) Obesity Nicotine dependence, cigarettes, uncomplicated Hyperlipemia Elevated LFTs Sleep apnea Insomnia HTN (hypertension) Family History Family History Father Dementia Mother Hypertension Colon cancer, Onset Age: 74 Family history of problems with anesthesia: No Surgical History Surgical History History of tonsillectomy History of colonoscopy History of History of surgery on left wrist History of Problems with Anesthesia: No Social History Social History Household Members Other:: 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, 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, 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, 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, 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 Housing: Apartment Are you a primary neonatal intensive care nurse to a significant other at home: No Do you presently have visiting nurse or other home services: No Alcohol intake: current Alcohol intake frequency: a few times a week Alcohol type: hard liquor Patient Tobacco Use Status: Former Tobacco user Quit Date: December 2022 Tobacco use type: Cigarette Cigarette Packs Per Day: 1 Cigarettes Per Day: 20 Years Smoked: onset 17yo, 1ppd x 40yrs, 40pyh- quit 12/2022 e-Cigarette/Vaping Use: Former Use service: No Current occupational status: employed Cognitive needs: No Hearing needs: No Vision needs: Yes Meds Allergies Allergy/AdvReac Type Severity Reaction Status Date / Time Penicillins Allergy patient Verified 04/03/23 08:47 does not remember Home Medications Medication Instructions Recorded Confirmed Last Taken Type montelukast 10 mg tablet 10 mg PO DAILY 11/28/22 04/19/23 Unknown History Exam Height,Weight and Vital Signs: Height 5 ft 3 in Weight 92.986 kg Last Vital Signs Pulse 93 04/16/23 13:46 Resp 18 04/16/23 13:46 BP 177/89 H 04/16/23 13:46 Pulse Ox 97 04/16/23 13:46 O2 Del Method Room Air 04/16/23 13:46 Pertinent Lab Results Pertinent Lab Results: Lab Results 04/16/23 Range/Units 14:25 WBC 9.2 (4.8-10.8) X10*3/uL RBC 4.95 (4.20-5.50) X10*6/uL Hgb 16.1 H (12.0-16.0) g/dl Hct 47.3 H (37.0-47.0) % MCV 95.6 (80.0-98.0) fL MCH 32.5 (27.0-33.0) pg MCHC 34.0 (31.0-35.0) g/dl RDW 12.9 (11.0-16.0) % Plt Count 243 D (160-400) X10*3/uL MPV 11.2 (9.4-12.3) fL Absolute Nucleated RBC 0.000 (0.0-0.012) X10*3/uL Nucleated RBC % (auto) 0.0 (0.0-0.2) /100WBC PT 11.5 (11.1-13.3) SEC INR 0.9 (0.9-1.1) Sodium 141 (135-145) mmol/L Potassium 4.0 (3.3-5.1) mmol/L Chloride 103 (96-108) mmol/L Carbon Dioxide 25 (22-29) mmol/L Anion Gap 17 (12-20) BUN 9 (9-16) mg/dL Creatinine 0.84 (0.5-1.4) mg/dL Estim Creat Clear Calc 79.1 Estimated GFR > 60 Random Glucose 108 (60-115) mg/dL Calcium 9.7 (8.4-10.2) mg/dL Total Bilirubin 0.6 (0.0-1.0) mg/dL AST 166 H (5-31) U/L ALT 229 H (0-31) U/L Alkaline Phosphatase 96 (39-117) U/L Total Protein 7.7 (6.5-8.0) g/dL Albumin 4.7 (3.5-5.0) g/dL Blood Type O Negative Antibody Screen NEGATIVE Narrative Narrative: EKG 04/2023 Vent. Rate : 071 BPM Atrial Rate : 071 BPM P-R Int : 154 ms QRS Dur : 080 ms QT Int : 414 ms P-R-T Axes : 044 018 038 degrees QTc Int : 449 ms Normal sinus rhythm Possible Inferior infarct , age undetermined Cannot rule out Anterior infarct , age undetermined Abnormal ECG No previous ECGs available Repeat EKG at cardiac clearance Sinus rhythm 69 beats per minute, axis, nonspecific ST-T changes, QTC 460 milliseconds. PFT 03/2023 FLOWS: 1. FEV1 100% of predicted at 2.78 L. 2. FVC 96% of predicted at 3.58 L. 3. FEV1 to FVC ratio of 0.78. 4. No bronchodilator response. LUNG VOLUMES: 1. Total lung capacity 104% of predicted at 5.15 L. 2. Residual volume 81% of predicted at 1.31 L. 3. Slow vital capacity 114% of predicted at 3.84 L. 4. Expiratory reserve volume 33% of predicted at 0.38 L. 5. Diffusion capacity is normal. IMPRESSION: No obstructive or restrictive ventilatory defect. No bronchodilator response. Decreased expiratory reserve volume suggests extrathoracic restriction likely secondary to abdominal obesity. Airway Mallampati Class: II TM Dist: >3cm Neck ROM: Full Loose/Missing/Broken Teeth: No (Permanet bridge front upper ) Heart: RRR Lungs: CTAB Assessment and Plan Assessment Anesthesia Assessment: Anesthesia Plan Discussed and PAT Visit Final Anesthetic Review Family History of Problems with Anesthesia: No History of Problems with Anesthesia: No Documented by User: Dennis Deluna MD 04/23/23 08:38 PMFSH Past Medical History Medical History Back pain GERD (gastroesophageal reflux disease) Anxiety History of abnormal cervical Pap smear (~2019) Obesity Nicotine dependence, cigarettes, uncomplicated Hyperlipemia Elevated LFTs Sleep apnea Insomnia HTN (hypertension) Family History Family History Father Dementia Mother Hypertension Colon cancer, Onset Age: 74 Surgical History Surgical History History of tonsillectomy History of colonoscopy History of History of surgery on left wrist Social History Social History Household Members Other:: 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, 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, 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, 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, 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 Housing: Apartment Are you a primary neonatal intensive care nurse to a significant other at home: No Do you presently have visiting nurse or other home services: No Alcohol intake: current Alcohol intake frequency: a few times a week Alcohol type: hard liquor Patient Tobacco Use Status: Former Tobacco user Quit Date: December 2022 Tobacco use type: Cigarette Cigarette Packs Per Day: 1 Cigarettes Per Day: 20 Years Smoked: onset 17yo, 1ppd x 40yrs, 40pyh- quit 12/2022 e-Cigarette/Vaping Use: Former Use service: No Current occupational status: employed Cognitive needs: No Hearing needs: No Vision needs: Yes Meds Allergies Allergy/AdvReac Type Severity Reaction Status Date / Time Penicillins Allergy patient Verified 04/03/23 08:47 does not remember Home Medications Medication Instructions Recorded Confirmed Last Taken Type montelukast 10 mg tablet 10 mg PO DAILY 11/28/22 04/19/23 Unknown History Exam Airway Denture: Upper (permanent) Assessment and Plan Final Anesthetic Review NPO: Yes ASA Class: III Final Preanesthetic Review: No Changes in Pt Med Stat, Meds/Allgs Chart Reviewed, Consent Obtained/Reviewed and Anes Risks/Benef Reviewed Patient Risk: Intermediate Procedure Risk: Intermediate Assessment/Block/Sedation in SS: Assess/Block/Sedation-SS Anesthetic Plan Anesthetic Plan: GA Disposition: Standard PACU
[2023-04-16 15:23] LABS: Hematocrit 47.3 % (37.0-47.0); Hemoglobin 16.1 g/dl (12.0-16.0); Mean Corpuscular Hemoglobin 32.5 pg (27.0-33.0); Mean Corpuscular Volume 95.6 fL (80.0-98.0); Mean Platelet Volume 11.2 fL (9.4-12.3); Platelet Count 243 X10*3/uL (160-400); Red Blood Count 4.95 X10*6/uL (4.20-5.50); Red Cell Distribution Width 12.9 % (11.0-16.0); White Blood Count 9.2 X10*3/uL (4.8-10.8)
[2023-04-16 15:28] LABS: INTERNATIONAL NORM RATIO 0.9 (0.9-1.1); Prothrombin Time 11.5 SEC (11.1-13.3)
[2023-04-16 15:53] LABS: Alanine Aminotransferase 229 U/L (0-31); Albumin Level 4.7 g/dL (3.5-5.0); Alkaline Phosphatase 96 U/L (39-117); Anion Gap 17 (12-20); Aspartate Amino Transferase 166 U/L (5-31); Bilirubin Total 0.6 mg/dL (0.0-1.0); Blood Urea Nitrogen 9 mg/dL (9-16); Calcium 9.7 mg/dL (8.4-10.2); Carbon Dioxide 25 mmol/L (22-29); Chloride 103 mmol/L (96-108); Creatinine Clr Calc Pharmacy 79.1; Estimated Glomerular Filt Rate > 60; Glucose Random 108 mg/dL (60-115); Sodium 141 mmol/L (135-145); Total Protein 7.7 g/dL (6.5-8.0)
--- NOTE | 2023-04-21 07:46 | MHC.SHP ---
Pre-Procedural Eval Section A Date of Service: 04/21/23 The patient is an INPATIENT: Yes Changes since office visit: No Cold of Flu in the past 2 weeks, No New Medical Problems, No Changes in Medication and No Patient answered all questions The History & Physical has been completed within 30 days and I have reviewed it.: Yes Section B Chief Complaint: Solitary pulmonary nodule Allergies: Allergies Allergy/AdvReac Type Severity Reaction Status Date / Time Penicillins Allergy patient Verified 04/03/23 08:47 does not remember Plan I have reviewed the history and physical and performed a pertinent physical examination on my patient. No changes have occurred unless specified. Time Spent With Patient Time: Total time managing care of this patient today ____ minutes.
[2023-04-23] VITALS (29 sets, daily range): BP systolic 117–172; BP diastolic 57–91; PULSE 81–100; RESP 16–24; TEMP 36.7–37.7; O2SAT 92–100; BMI 36.0
--- NOTE | ~2023-04-23 | XR_ITS ---
EXAMINATION: XR CHEST CLINICAL INFORMATION: Status post VATS, left upper lobe wedge resection. COMPARISON: April 24, 2023 at 7:50 AM. TECHNIQUE: AP portable view of the chest was obtained and is marked with time of 6:02 AM on April 25, 2023. FINDINGS: Left-sided chest tube again seen in place. There is a minimal left apical pneumothorax. There is a region of discoid disease likely representing atelectasis or postoperative change about the mid left lung. No significant pleural effusion identified. Heart normal size. No evidence of pulmonary edema. Subcutaneous emphysema present. XR/XR chest 1V IMPRESSION: No significant change compared to previous day's study. Left chest tube in place with minimal apical pneumothorax.
--- NOTE | ~2023-04-23 | XR_ITS ---
EXAMINATION: XR CHEST CLINICAL INFORMATION: Status post VATS, left upper lobe wedge resection. COMPARISON: Early on same day at 6:02 AM and April 24, 2023. TECHNIQUE: AP portable view of the chest was obtained. April 25, 2023 at 11:16 AM. FINDINGS: Left-sided chest tube has been removed. No significant pneumothorax is identified with question of a minimal left apical pneumothorax. Suture line seen about the mid left lung. There is some hazy density seen about the lower left lung with some silhouetting of the left heart border which may be related to some degree of atelectasis within the lingula. The right hemithorax appears unremarkable. Heart normal size. No evidence of pulmonary edema. There is some residual subcutaneous emphysema present. No significant pleural effusion. XR/XR chest 1V IMPRESSION: Status post left chest tube removal without significant pneumothorax. Opacity lower left lung as described.
--- NOTE | ~2023-04-23 | XR_ITS ---
EXAMINATION: XR CHEST CLINICAL INFORMATION: s/p VATS, left upper lobe wedge resection COMPARISON: Previous chest CT February 2023 TECHNIQUE: Frontal view of the chest was obtained. FINDINGS: Left apical chest tube. Postsurgical changes to the left mid lung with surgical staple line. Very small left apical pneumothorax. Left chest wall subcutaneous emphysema. Bilateral atelectasis. No significant pleural effusion. Normal cardiac and mediastinal contours. Normal bone structures. XR/XR chest 1V IMPRESSION: New postsurgical changes to the left hemithorax. Satisfactory position of left chest tube. Small left apical pneumothorax. Left chest wall subcutaneous emphysema. Bilateral atelectasis.
--- NOTE | ~2023-04-23 | XR_ITS ---
EXAMINATION: XR CHEST CLINICAL INFORMATION: Status post VATS, left upper lobe wedge resection COMPARISON: Portable chest 04/23/2023 TECHNIQUE: AP upright portable view of the chest was obtained. 7:50 AM FINDINGS: Left apical chest tube is again noted. Postsurgical changes to the left midlung with surgical staple line is seen. Interval decrease in opacity in that region. No pneumothorax. Interval decrease in left chest wall subcutaneous emphysema. Bibasilar atelectasis. No significant pleural effusion. The cardiomediastinal silhouette is stable. Normal bone structures. XR/XR chest 1V IMPRESSION: Postsurgical changes to the left hemithorax. Satisfactory position of left chest tube. No pneumothorax. Left chest wall subcutaneous emphysema has decreased. Bibasilar atelectasis.
[2023-04-23] MEDS: Lactated Ringers 1,000 ML 100 ML IVCONT (07:23)
--- NOTE | 2023-04-23 10:49 | P.OP_ITS ---
Operative Note Operative Note Date of Service: 04/23/23 Narrative: Preoperative diagnosis: [] left upper lobe lung mass Postop diagnosis: [] same Procedure [] bronchoscopy, vats left upper lobe wedge resection, intercostal nerve block Surgeon: [] Jose Captain/Check Airman: [] Jolanta Vargas Type of Anesthesia: [] double-lumen general Indication for surgery: [] bronchoscopy demonstrated no gross endoluminal pathology. It Was also used to assist anesthesia in the placement of the doub le-lumen endotracheal tube. Intraop thoracic findings demonstrated an isolated left upper lobe lung lesion, deeply situated in the lobe , which was wedge resected and sent for frozen section by pathology and was benign. Findings: [] Patient brought to the operating room, placed on operative table in supine position, after adequate level of double-lumen tube intubation, patient was placed in the right lateral decubitus position where bronchoscopy was performed with findings as noted above. Patient had the left chest prepped and draped in usual sterile fashion. Using anterior and posterior working ports in the anterior and posterior axillary lines in approximately 7 intercostal spaces, and an axillary working incision made in the axilla in the 3rd intercostal space, with wound protector placed, left upper lobe lung lesion was identified and wedged out using PAOLA thorascopic staplers. Because of the central location of the lesion, access incision was extended to allow direct visualization and palpation of the lesion for wedge resection.This was retrieved and sent to pathology where frozen section found this to be benign. Chest cavity is filled with saline and remaining lung inflated and the staple line of the left upper lobe wedge was pneumostatic. Chest cavity was secured for hemostasis. All ports removed under direct thoroscopic view ,after anterior port apical 24 [place] Islander chest tube was placed and secured to the skin using 0 silk suture. Wounds were closed in the following manner; over and over 2. Vicryl intercostal sutures were used to reapproximate the ribs in the mn access incision. Chest wall musculature was closed in layers using running 0 Vicryl suture. Running deep dermal 2-0 Vicryl suture followed by running subcuticular 4-0 Vicryl suture placed. Port sites were closed using the followed ; Deep dermal interrupted 2-0 and subcu tissue 3-0 Vicryl sutures respectively. Intercostal nerve block using long-acting 0.5% bupivacaine was performed at all wound sites. Steri-Strips and sterile dressings were applied. Chest tube was connected to Pleur-evac and lung re-expanded with no air leak appreciated. Sponge, needle, instrument counts reported correct. Patient tolerated the procedure well emerged anesthesia stable condition. EBL minimal. Postprocedure x-ray pending in recovery room.
[2023-04-23] MEDS: HYDROmorphone HCl 0.5 MG/0.5 ML SYRINGE IVPUSH ×6 (11:10→21:21)
--- NOTE | 2023-04-23 11:55 | PHA.MEDREC ---
Pharmacy Consult ? Medication Reconciliation Pharmacy has completed the medication reconciliation. Reviewed med rec done by nursing
[2023-04-23] MEDS: oxyCODONE HCl Immed Release 5 MG TABLET PO (12:48)
[2023-04-23] MEDS: fentaNYL citrate/PF 100 MCG/2 ML VIAL 50 MCG IVPUSH ×3 (12:49→13:56)
[2023-04-23] MEDS: oxyCODONE HCl Immed Release 5 MG TABLET 10 MG PO ×2 (15:26→18:42)
[2023-04-23] MEDS: Lactated Ringers 1,000 ML 80 ML IVCONT (15:27)
[2023-04-23] MEDS: Acetaminophen 1,000 MG/100 ML PIGGYBACK 400 MG IV ×2 (15:28→21:27)
[2023-04-23] MEDS: lisinopriL 20 MG TABLET PO (16:08)
[2023-04-23] MEDS: amLODIPine Besylate 5 MG TABLET PO (16:08)
--- NOTE | 2023-04-23 17:00 | HO.PM.IMCN ---
History of Present Illness Data of Consult Service Date: 04/23/23 Primary Care Provider: Nirmala Merrill MD HPI 57-year-old woman status post left upper lobe wedge resection secondary to left upper lobe lung mass. Surgery was unremarkable. Patient had chest tube placed to gravity. She has been able to eat and drink without any nausea or vomiting. She does have a moderate amount of pain. She is currently resting comfortably in bed, vital signs are stable Review of Systems Review of Systems: Denies any recent fever chills or decrease in appetite respiratory report some mild shortness of breath cardiovascular denies chest pain gastrointestinal denies any dysphagia abdominal pain nausea vomiting or diarrhea genitourinary denies any dysuria frequency or hematuria musculoskeletal denies any joint pain or swelling neuropsych denies any weakness or seizures all other systems reviewed are negative [facility] Medical History Back pain GERD (gastroesophageal reflux disease) Anxiety History of abnormal cervical Pap smear (~2019) Obesity Nicotine dependence, cigarettes, uncomplicated Hyperlipemia Elevated LFTs Sleep apnea Insomnia HTN (hypertension) Family History Father Dementia Mother Hypertension Colon cancer, Onset Age: 74 Surgical History History of tonsillectomy History of colonoscopy History of History of surgery on left wrist Social History Household Members: None Household Members Other:: single, 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, 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, 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, 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 Housing: Apartment Are you a primary care tech to a significant other at home: No Do you presently have visiting nurse or other home services: No Alcohol intake: current Alcohol intake frequency: a few times a week Alcohol type: hard liquor Comment: COUNTS CORRECT Patient Tobacco Use Status: Former Tobacco user Quit Date: December 2022 Tobacco use type: Cigarette Cigarette Packs Per Day: 1 Cigarettes Per Day: 20 Years Smoked: onset 17yo, 1ppd x 40yrs, 40pyh- quit 12/2022 e-Cigarette/Vaping Use: Former Use Use of substances other than those prescribed or required for medical reasons: No Substance Use Type Other:: vape Substance Use Frequency: Occasionally Currently Displaying Signs/Symptoms of Drug Intoxication Withdrawal: No Have you been hit, kicked, punched, or otherwise hurt by someone within the past year? If so, by whom?: No Do you feel safe in your current relationship?: Yes Is there a partner from a previous relationship who is making you feel unsafe now?: No Are you made to feel afraid or neglected: No Advance Directives: No Advance Directives Information Provided: No Advance Directives on File: No Do you have thoughts of harming others: None Do you have a plan to hurt others: No Plan Recently lost weight without trying: No Eating poorly because of decreased appetite: No Nutrition Risks: No Nutritional Risk Patient : No : No Poor oral hygiene: No service: No Current occupational status: employed Cognitive needs: No Hearing needs: No Vision needs: Yes Meds Allergies Allergy/AdvReac Type Severity Reaction Status Date / Time Penicillins Allergy patient Verified 04/03/23 08:47 does not remember Active Medications: Current Medications Al Hydroxide/Mg Hydroxide (Magnesium Hydrox/Alum Hydrox 30 Ml Oral.Susp) 30 ml PO Q4H PRN PRN Reason: Heartburn/Nausea Amlodipine Besylate (Amlodipine Besylate 5 Mg Tablet) 5 mg PO DAILY [facility] Last Admin: 04/23/23 16:08 Dose: 5 mg Docusate Sodium (Docusate Sodium 100 Mg Capsule) 100 mg PO BID [facility] Heparin Sodium (Porcine) (Heparin Sodium,Porcine 5,000 Unit/Ml Vial) 5,000 unit SUBCUT Q8H [facility] Hydromorphone HCl (Hydromorphone Hcl 0.5 Mg/0.5 Ml Syringe) 0.5 mg IVPUSH Q3H PRN; Protocol PRN Reason: Pain, Severe (Pain Scale 7-10) Last Admin: 04/23/23 15:54 Dose: 0.5 mg Acetaminophen (Ofirmev) 1,000 mg in 100 mls @ 400 mls/hr IV Q6H [facility] Last Infusion: 04/23/23 15:49 Dose: Infused Lactated Ringer's (Lr) 1,000 mls @ 80 mls/hr IVCONT .[id number] [facility] Last Admin: 04/23/23 15:27 Dose: 80 mls/hr Lisinopril (Lisinopril 20 Mg Tablet) 20 mg PO DAILY [facility] Last Admin: 04/23/23 16:08 Dose: 20 mg Melatonin (Melatonin 3 Mg Tablet) 6 mg PO BEDTIME PRN PRN Reason: Insomnia Montelukast Sodium (Montelukast Sodium 10 Mg Tablet) 10 mg PO DAILY [facility] Ondansetron HCl (Ondansetron Hcl 4 Mg/2 Ml Vial) 4 mg IVPUSH Q8H PRN PRN Reason: Nausea and Vomiting Oxycodone HCl (Oxycodone Hcl Immed Release 5 Mg Tablet) 5 mg PO Q4H PRN PRN Reason: Pain, Moderate(Pain Scale 4-6) Oxycodone HCl (Oxycodone Hcl Immed Release 5 Mg Tablet) 10 mg PO Q4H PRN PRN Reason: Pain, Severe (Pain Scale 7-10) Last Admin: 04/23/23 15:26 Dose: 10 mg Sodium Chloride (0.9 % Sodium Chloride Flush 3 Ml Syringe) 3 ml IVFLUSH QSHIFT YULIET Last Admin: 04/23/23 15:28 Dose: Not Given Home Medications Medication Instructions Recorded Confirmed Last Taken Type montelukast 10 mg tablet 10 mg PO DAILY 11/28/22 04/19/23 Unknown History Physical Exam Vital Signs and Narrative: Vital Signs: Last Vital Signs Temp 98.3 F 04/23/23 15:14 Pulse 94 04/23/23 15:14 Resp 20 04/23/23 15:14 BP 172/91 H 04/23/23 15:14 Pulse Ox 96 04/23/23 15:14 O2 Del Method Nasal Cannula 04/23/23 15:14 O2 Flow Rate 2 04/23/23 15:14 BMI result Body Mass Index 36.0 Appearing in no acute distress head is normocephalic atraumatic eyes pupils are PERRLA sclera is anicteric mouth throat mucous membranes are intact and moist neck is supple no lymphadenopathy, no JVD noted lung sounds are clear to auscultation, chest tube in place heart regular rate rhythm, clear S1, S2 positive bowel sounds, abdomen is soft, nontender neuro patient is alert x3, no focal deficits Results Labs 04/24/23 05:42 04/24/23 05:42 Imaging Radiologist's Impressions: Impressions Chest X-Ray 04/23/23 11:50 IMPRESSION: New postsurgical changes to the left hemithorax. Satisfactory position of left chest tube. Small left apical pneumothorax. Left chest wall subcutaneous emphysema. Bilateral atelectasis. Assessment and Plan (1) Pulmonary nodule: Status: Acute Plan 57-year-old woman status post VATS procedure for left upper lobe blood sugar resection secondary to left upper lobe lung mass Vats procedure Management as per surgical team Pain management Hypertension with elevated blood pressure readings Continue amlodipine and lisinopril Pain likely contributing to elevated blood pressure DVT prophylaxis with heparin as per admitting team Full code Medical consultation complete. Will sign off.
[2023-04-23] MEDS: Melatonin 3 MG TABLET 6 MG PO (19:25)
[2023-04-23] MEDS: Docusate Sodium 100 MG CAPSULE PO (19:25)
[2023-04-23] MEDS: 0.9 % Sodium Chloride Flush 3 ML SYRINGE IVFLUSH (21:26)
[2023-04-23] MEDS: Magnesium Hydrox/Alum Hydrox 30 ML ORAL.SUSP PO (21:30)
[2023-04-24] VITALS: BP 139/67; PULSE 82; RESP 16; TEMP 36.5; O2SAT 94
[2023-04-24] MEDS: HYDROmorphone HCl 0.5 MG/0.5 ML SYRINGE IVPUSH ×3 (00:53→21:25)
[2023-04-24] MEDS: oxyCODONE HCl Immed Release 5 MG TABLET 10 MG PO ×4 (03:22→21:37)
[2023-04-24] MEDS: Acetaminophen 1,000 MG/100 ML PIGGYBACK 400 MG IV ×4 (03:23→21:26)
[2023-04-24] MEDS: Lactated Ringers 1,000 ML 80 ML IVCONT ×2 (03:23→17:01)
[2023-04-24] MEDS: Magnesium Hydrox/Alum Hydrox 30 ML ORAL.SUSP PO (03:31)
[2023-04-24 04:00] VITALS: BP 114/72; PULSE 66; RESP 16; TEMP 36.6; O2SAT 94
[2023-04-24 06:19] LABS: Basophils Absolute Auto 0.1 X10*3/uL (0.0-0.2); Basophils Percent Auto 0.4 % (0-2); Hematocrit 41.8 % (37.0-47.0); Hemoglobin 14.2 g/dl (12.0-16.0); Imm Gran Abs Auto 0.12 X10*3/uL (0.00-0.03); Imm Gran Pct Auto 0.7 % (0.0-0.4); Lymphocytes Absolute Auto 1.3 X10*3/uL (1.2-4.9); Lymphocytes Percent Auto 7.4 % (20-40); MANUAL DIFF FLAG SCAN; Mean Corpuscular Hemoglobin 33.3 pg (27.0-33.0); Mean Corpuscular Volume 97.9 fL (80.0-98.0); Mean Platelet Volume 11.5 fL (9.4-12.3); Monocytes Absolute Auto 1.8 X10*3/uL (0.1-1.2); Monocytes Percent Auto 9.9 % (2-11); Neutrophils Absolute Auto 14.6 x10*3/uL (2.0-8.3); Neutrophils Percent Auto 81.6 % (45-73); Platelet Count 209 X10*3/uL (160-400); Red Blood Count 4.27 X10*6/uL (4.20-5.50); Red Cell Distribution Width 13.4 % (11.0-16.0); SCAN SMEAR FLAG 1; White Blood Count 17.9 X10*3/uL (4.8-10.8)
[2023-04-24 06:20] LABS: Anion Gap 16 (12-20); Blood Urea Nitrogen 11 mg/dL (9-16); Calcium 9.6 mg/dL (8.4-10.2); Carbon Dioxide 28 mmol/L (22-29); Chloride 99 mmol/L (96-108); Creatinine Clr Calc Pharmacy 84.7; Estimated Glomerular Filt Rate > 60; Glucose Random 137 mg/dL (60-115); Potassium 4.5 mmol/L (3.3-5.1); Sodium 138 mmol/L (135-145)
[2023-04-24 06:49] LABS: SLIDE REVIEW VERIFIED
[2023-04-24 07:33] VITALS: BP 150/72; PULSE 72; RESP 16; TEMP 36; O2SAT 96
--- NOTE | 2023-04-24 07:46 | PM.PNTS ---
Subjective Subjective Date of Service: 04/24/23 Interval history: C/o pain and requiring dilaudid IV q3h for pain control. However able to take deep breaths, ising incentive spirometer. OOB to bathroom. Tolerating diet. Physical Exam Vital Signs: Vital Signs: Last Vital Signs Temp 96.8 F 04/24/23 07:33 Pulse 72 04/24/23 07:33 Resp 16 04/24/23 07:33 BP 150/72 H 04/24/23 07:33 Pulse Ox 96 04/24/23 07:33 O2 Del Method Room Air 04/24/23 07:33 O2 Flow Rate 2 04/23/23 15:14 BMI result Body Mass Index 36.0 Const: General: comfortable, no acute distress and alert Orientation/consciousness: patient oriented x3 Chest: Other: left chest incisions clean, some ecchymosis on lateral aspect of superior incision chest tube in place, serosanguineous drainage Resp: Effort & Inspection: normal respiratory effort and able to speak in complete sentences Auscultation: clear to auscultation bilaterally Skin: General skin exam: no rashes or lesions noted Neuro: General: patient oriented x3 and moves all extremities Procedures Date of Service Date of Service: 04/24/23 Progress Note: A&P Assessment and plan (1) Pulmonary nodule: Status: Acute Plan POD #1 s/p bronchoscopy, vats left upper lobe wedge resection, intercostal nerve block. Doing well post op, requiring IV analgesics but with good pain control. Hemodynamically stable. Chest tube with scant output overnight and no air leak on exam. Await AM CXR. Place chest tube to water seal for now. Encouraged OOB and ambulation of halls, incentive spirometer at least 10x/hr. Leukocytosis likely reactive, repeat in am. Time Spent With Patient Time: Total time managing care of this patient today ____ minutes. Quality Stroke Does the patient have a stroke diagnosis?: No VTE Prior VTE?: No VTE Risk Level:: Surgical - high VTE Device Contraindication: N/A - Device Ordered VTE Drug Contraindication: N/A - Med Ordered
[2023-04-24] MEDS: Docusate Sodium 100 MG CAPSULE PO ×2 (08:36→21:25)
[2023-04-24] MEDS: Montelukast Sodium 10 MG TABLET PO (08:36)
[2023-04-24] MEDS: lisinopriL 20 MG TABLET PO (08:37)
[2023-04-24] MEDS: amLODIPine Besylate 5 MG TABLET PO (08:37)
--- NOTE | 2023-04-24 09:25 | MHC.CM.PN ---
pt lives alone is independent and working is requesting a vna when dcd for dsgin changes
[2023-04-24] MEDS: Heparin Sodium,Porcine 5,000 UNIT/ML VIAL 5000 UNIT SUBCUT ×2 (11:08→18:18)
--- NOTE | 2023-04-24 13:57 | HO.POSTANES ---
Post Anesthesia Evaluation Post Anesthesia Evaluation Date of Service: 04/24/23 Vital Signs: Vital Signs Temp Pulse Resp BP Pulse Ox O2 Del Method 04/24/23 07:33 96.8 F 72 16 150/72 H 96 Room Air 04/24/23 04:00 97.8 F 66 16 114/72 94 Room Air Anesthesia: General Endotracheal-GETA (double lumen tube) Mental Status: Awake Pain Control: Satisfactory (difficulty controlling pain ) Nausea/Vomiting: Mild Hydration: Adequate Anesthesia-Related Issues: No Anes. Related Issues
[2023-04-24 15:28] VITALS: BP 125/66; PULSE 73; RESP 16; TEMP 36.2; O2SAT 97
[2023-04-24 19:07] VITALS: BP 127/57; PULSE 64; RESP 16; TEMP 36.3; O2SAT 94
[2023-04-24] MEDS: Melatonin 3 MG TABLET 6 MG PO (21:25)
[2023-04-25] MEDS: Lactated Ringers 1,000 ML 80 ML IVCONT (00:36)
[2023-04-25 03:03] VITALS: BP 148/67; PULSE 70; RESP 16; TEMP 36; O2SAT 95
[2023-04-25] MEDS: Acetaminophen 1,000 MG/100 ML PIGGYBACK 400 MG IV ×3 (03:41→14:29)
[2023-04-25] MEDS: Heparin Sodium,Porcine 5,000 UNIT/ML VIAL 5000 UNIT SUBCUT ×2 (03:44→14:54)
--- NOTE | 2023-04-25 05:18 | PC.NURSE ---
PATIENT SLEPT IN NAPS, A/O X3, SKIN W/D LUNG THOMPSON CLEAR, EXCEPT DIM LLL. 94-95% ROOM AIR, DENIES FEELING SOB OR CHEST PAIN. NO S/SX RESP DISTRESS. AMBULATING IN ROOM BED TO COMMODE. VSS, CHEST TUBE TO WATER SEAL GRAVITY INTACT AT LEFT FLANK, DRESSING C-D-I. SMALL DSD AT MID UPPER BACK , ALSO BRUISING AND A SURGICAL DRESSING AT LEFT AXILLAE WITH OLD DRY STAINING. NO ACTIVE DRAINAGE. PATIENT USING INCENTIVE SPIROMETER TO 1999 WITH GOOD TOLERANCE. SCHEDULED IV APAP FOR PAIN MANAGEMENT WITH SOME EFFECT, RATES PAIN BETWEEN 3-6, INCREASES WITH MOVEMENT. DECLINED OTHER PAIN OPTIONS. FIRST CHAMBER OF CT NOTED AT 110 ML AT START OF SHIFT-2300-, SANGUINEOUS IN COLOR. TUBING WITH SCANT BLOODY DRAINAGE NOTED. WILL CONTINUE TO MONITOR CLOSELY.
[2023-04-25 06:30] LABS: MANUAL DIFF FLAG NO
[2023-04-25 06:34] LABS: Basophils Absolute Auto 0.1 X10*3/uL (0.0-0.2); Basophils Percent Auto 0.7 % (0-2); Eosinophils Absolute Auto 0.1 X10*3/uL (0.0-0.4); Eosinophils Percent Auto 1.1 % (0-4); Hematocrit 39.1 % (37.0-47.0); Hemoglobin 13.4 g/dl (12.0-16.0); Imm Gran Abs Auto 0.05 X10*3/uL (0.00-0.03); Imm Gran Pct Auto 0.4 % (0.0-0.4); Lymphocytes Absolute Auto 2.4 X10*3/uL (1.2-4.9); Lymphocytes Percent Auto 21.2 % (20-40); Mean Corpuscular HGB Conc 34.3 g/dl (31.0-35.0); Mean Corpuscular Hemoglobin 34.3 pg (27.0-33.0); Mean Platelet Volume 11.4 fL (9.4-12.3); Monocytes Absolute Auto 0.9 X10*3/uL (0.1-1.2); Monocytes Percent Auto 7.7 % (2-11); Neutrophils Absolute Auto 7.9 x10*3/uL (2.0-8.3); Neutrophils Percent Auto 68.9 % (45-73); Platelet Count 172 X10*3/uL (160-400); Red Blood Count 3.91 X10*6/uL (4.20-5.50); Red Cell Distribution Width 13.4 % (11.0-16.0); White Blood Count 11.4 X10*3/uL (4.8-10.8)
[2023-04-25 07:26] VITALS: BP 138/66; PULSE 76; RESP 16; TEMP 36.8; O2SAT 95
--- NOTE | 2023-04-25 08:06 | PM.PNGS ---
Subjective Subjective Date of Service: 04/25/23 Interval history: Feels ok this morning. C/o left upper chest and some axillary pain. Requiring oral and IV analgesics. OOB and using IS. Tolerating diet. Denies SOB. Physical Exam Vital Signs: Vital Signs: Last Vital Signs Temp 98.2 F 04/25/23 07:26 Pulse 76 04/25/23 07:26 Resp 16 04/25/23 07:26 BP 138/66 04/25/23 07:26 Pulse Ox 95 04/25/23 07:26 O2 Del Method Room Air 04/25/23 07:26 O2 Flow Rate 2 04/23/23 15:14 BMI result Body Mass Index 36.0 Const: General: comfortable, no acute distress and alert Orientation/consciousness: patient oriented x3 Chest: Other: mild crepitus to chest extending proximally into neck incision sites clean, steris intact chest tube in place to water seal Resp: Effort & Inspection: normal respiratory effort and able to speak in complete sentences Skin: General skin exam: no rashes or lesions noted Neuro: General: patient oriented x3 Objective Data Active Medications Al Hydroxide/Mg Hydroxide (Magnesium Hydrox/Alum Hydrox 30 Ml Oral.Susp) 30 ml PO Q4H PRN PRN Reason: Heartburn/Nausea Last Admin: 04/24/23 03:31 Dose: 30 ml Documented By: AUNDREA Amlodipine Besylate (Amlodipine Besylate 5 Mg Tablet) 5 mg PO DAILY [facility] Last Admin: 04/24/23 08:37 Dose: 5 mg Documented By: NICHELLE Docusate Sodium (Docusate Sodium 100 Mg Capsule) 100 mg PO BID [facility] Last Admin: 04/24/23 21:25 Dose: 100 mg Documented By: ZEESHAN Heparin Sodium (Porcine) (Heparin Sodium,Porcine 5,000 Unit/Ml Vial) 5,000 unit SUBCUT Q8H [facility] Last Admin: 04/25/23 03:44 Dose: 5,000 unit Documented By: LILLIE Hydromorphone HCl (Hydromorphone Hcl 0.5 Mg/0.5 Ml Syringe) 0.5 mg IVPUSH Q3H PRN; Protocol PRN Reason: Pain, Severe (Pain Scale 7-10) Last Admin: 04/24/23 21:25 Dose: 0.5 mg Documented By: ZEESHAN Acetaminophen (Ofirmev) 1,000 mg in 100 mls @ 400 mls/hr IV Q6H [facility] Last Infusion: 04/25/23 04:00 Dose: Infused Documented By: LILLIE Lactated Ringer's (Lr) 1,000 mls @ 80 mls/hr IVCONT .[id number] [facility] Last Admin: 04/25/23 00:36 Dose: 80 mls/hr Documented By: LILLIE Lisinopril (Lisinopril 20 Mg Tablet) 20 mg PO DAILY [facility] Last Admin: 04/24/23 08:37 Dose: 20 mg Documented By: NICHELLE Melatonin (Melatonin 3 Mg Tablet) 6 mg PO BEDTIME PRN PRN Reason: Insomnia Last Admin: 04/24/23 21:25 Dose: 6 mg Documented By: ZEESHAN Montelukast Sodium (Montelukast Sodium 10 Mg Tablet) 10 mg PO DAILY [facility] Last Admin: 04/24/23 08:36 Dose: 10 mg Documented By: NICHELLE Ondansetron HCl (Ondansetron Hcl 4 Mg/2 Ml Vial) 4 mg IVPUSH Q8H PRN PRN Reason: Nausea and Vomiting Oxycodone HCl (Oxycodone Hcl Immed Release 5 Mg Tablet) 5 mg PO Q4H PRN PRN Reason: Pain, Moderate(Pain Scale 4-6) Oxycodone HCl (Oxycodone Hcl Immed Release 5 Mg Tablet) 10 mg PO Q4H PRN PRN Reason: Pain, Severe (Pain Scale 7-10) Last Admin: 04/24/23 21:37 Dose: 10 mg Documented By: ZEESHAN Sodium Chloride (0.9 % Sodium Chloride Flush 3 Ml Syringe) 3 ml IVFLUSH QSHIFT [facility] Last Admin: 04/25/23 00:51 Dose: Not Given Documented By: LILLIE Non-Admin Reason: IV Running Labs 04/25/23 06:05 04/24/23 05:42 Labs: Laboratory Results - last 24 hr 04/25/23 06:05 MCV 100.0 H MCH 34.3 H MCHC 34.3 RDW 13.4 Plt Count 172 MPV 11.4 Immature Gran % (Auto) 0.4 Neut % (Auto) 68.9 Lymph % (Auto) 21.2 Meade % (Auto) 7.7 Eos % (Auto) 1.1 Baso % (Auto) 0.7 Lymph # (Auto) 2.4 [place]ade # (Auto) 0.9 Eos # (Auto) 0.1 Baso # (Auto) 0.1 Abs Immat Gran (auto) 0.05 H Absolute Neuts (auto) 7.9 Absolute Nucleated RBC 0.000 Nucleated RBC % (auto) 0.0 Procedures Date of Service Date of Service: 04/25/23 Progress Note: A&P Assessment and plan (1) Pulmonary nodule: Status: Acute Plan POD #2 s/p VATS, left upper lobe wedge resection. Continues to do well post op. Has mild expected subcutaneous emphysema, incisions clean, chest tube in place to water seal. CXR shows no pneumo. Will remove chest tube today, repeat CXR after 1 hr. Discussed stable for dc to home once pain controlled on oral analgesics. Will reassess later today. She is comfortable with the plan. Final pathology pending. Time Spent With Patient Time: Total time managing care of this patient today ____ minutes. Quality Stroke Does the patient have a stroke diagnosis?: No VTE Prior VTE?: No VTE Risk Level:: Surgical - high VTE Device Contraindication: N/A - Device Ordered VTE Drug Contraindication: N/A - Med Ordered
[2023-04-25] MEDS: oxyCODONE HCl Immed Release 5 MG TABLET 10 MG PO ×2 (08:13→13:00)
[2023-04-25] MEDS: amLODIPine Besylate 5 MG TABLET PO (08:14)
[2023-04-25] MEDS: Montelukast Sodium 10 MG TABLET PO (08:14)
[2023-04-25] MEDS: Docusate Sodium 100 MG CAPSULE PO (08:14)
[2023-04-25] MEDS: lisinopriL 20 MG TABLET PO (08:14)
--- NOTE | 2023-04-25 10:07 | P.F2F_ITS ---
Service Date Service Date: 04/25/23 Encounter Date of encounter: 04/25/23 Reasons for Services Signs and symptoms assessed: chest pain, incision appearance, chest tube output, CXR Reason for retirement: wound care and postoperative assessment and/or care Homebound: Leaving the home is medically contraindicated at this time without the asist of a device and/or another person due th the listed conditions above and below. Reason homebound: weakness related to hospital stay and unable to drive Homebound supporting statement: Ms. Archer is s/p VATS left upper lobe wedge resection. Her chest tube was removed uneventfully 04/25/23. She will need dressing changes to the site every other day. Certification: Based on the above findings, I certify that this patient is confined to the home and needs intermittent retirement care, physical therapy and/or speech therapy, or continues to need occupational therapy. The patient is under my care, and I have initiated the establishment of the plan of care. The patient will be followed by a physician who will periodically review the plan of care. Time Spent With Patient Time: Total time managing care of this patient today ____ minutes.
--- NOTE | 2023-04-25 14:53 | MHC.CM.PN ---
Patient is discharged to home today with [facility]. Wound care education was provided to the patient. Patient and B.F. will perform wound care. Patient arranged for transportation home.
--- NOTE | 2023-04-26 12:32 | PM.DS ---
DS: Providers Provider Date of Service: 04/25/23 Date of admission: 18 10:49 Date of discharge: 04/25/23 Primary care physician: Nirmala Merrill MD Attending physician on admission: Morro Garcia Consults: 04/23/23 15:07 Consult to Hospitalist Routine Comment: Consulting Provider: Hospitalist Reason For Exam: s/p VATs, wedge resection, HTN, TRUDI Attending physician on discharge: Morro Garcia DS: Diagnosis Discharge Diagnosis (1) Pulmonary nodule: Status: Acute DS: Summary Hospital Course Hospital Course: HPI AT ADMISSION: Patient presents with her significant other for evaluation of a suspicious left upper lobe lung lesion identified on a lung cancer screening CT scan. She was referred for the scan through her medical doctor. She herself has no respiratory issues or complaints. She denies any cough, chest pain, hemoptysis, or wheezing. Patient has a very significant smoking history. One pack per day for over 40 years. She has discontinued smoking approximately 3 months ago. Otherwise her weight is stable, energy is good. Appetite is good. It was recommended to proceed with VATS possible open left upper lobe wedge resection with possible lobectomy given the suspicious lesion in combination with her significant smoking history for evaluation and treatment. She agreed and now presents for the above planned procedure. HOSPITAL COURSE: On 04/23/23, a bronchoscopy, vats left upper lobe wedge resection, intercostal nerve block was performed by Dr. Garcia without immediate complication. Intraop thoracic findings demonstrated an isolated left upper lobe lung lesion, deeply situated in the lobe, which was wedge resected and sent for frozen section by pathology and was benign. 24F chest tube placed intraoperatively. The patient tolerated the procedure well and was admitted to the medical surgical floor for observation. She had an uncomplicated recovery course. On POD #1, she had adequate pain control with PRN IV and PO analgesics. Her incisions were clean. She was using her incentive spirometer. Her chest tube had no air leak and CXR demonstrated no pneumothorax therefore the chest tube was placed to water seal. She was ambulated. The following day, her CXR continued without any significant pneumothorax and her chest tube was removed uneventfully and occlusive dressing placed. F/u CXR was unchanged. She was reassessed later in the day and had adequate pain control on oral analgesics. She was ambulating without difficulty. Her incisions were clean. She felt ready for discharge to home. She was discharged to home on POD #2, 04/25/23 in stable condition with [facility] services for chest tube dressing changes every other day with xeroform, 4x4 and tape. She is to follow up with Dr. Garcia in 1 week. She was encouraged to continue incentive spirometer use 10x/hr. Final pathology remained benign. Status at Discharge Functional status at discharge: independent ambulation Overall status at discharge: patient is progressing back to baseline Time Attestation Discharge coordination time: Less than 30 minutes Quality: Safe Use of Opioids Does Pt have an Active Cancer Diagnosis on the Problem List?: No Quality: Stroke Does the patient have a stroke diagnosis?: No Physical Exam Vital Signs: Vital Signs: Last Vital Signs Temp 98.2 F 04/25/23 07:26 Pulse 76 04/25/23 07:26 Resp 16 04/25/23 07:26 BP 138/66 04/25/23 07:26 Pulse Ox 95 04/25/23 07:26 O2 Del Method Room Air 04/25/23 07:26 O2 Flow Rate 2 04/23/23 15:14 BMI result Body Mass Index 36.0 Const: General: comfortable, no acute distress and alert Orientation/consciousness: patient oriented x3 Chest: Other: lateral left chest incisions clean; superior incision with moderate surrounding ecchymosis Resp: Effort & Inspection: normal respiratory effort Skin: General skin exam: no rashes or lesions noted and no jaundice Neuro: General: patient oriented x3 and moves all extremities DS: Data Data Completed and Pending Completed studies during hospitalization [Text1]: 04/23/23 09:19 Surgical [PTH] Routine Lung, left upper lobe mass, wedge resection: 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 Discharge Plan Discharge Anticipated Discharge Date/Time: 04/26/23 10:05 Patient Disposition: Home Health Service Discharge Diagnosis: s/p VATS, left upper lobe wedge resection Referrals: [facility] [Outside] - 1 Week Nirmala Merrill MD [Primary Care Provider] - 1 Week Morro Garcia MD [Physician] - 1 Week Discharge Medications: New docusate sodium [Colace] 100 mg capsule 100 mg PO BID PRN (Reason: constipation) Qty: 30 0RF oxycodone 5 mg tablet 5 mg PO Q4H PRN (Reason: pain (scale score 7-10)) Qty: 30 0RF Rx Instructions: Partial Fill upon patient request. Take 1-2 tablets every 4 hours as needed for pain. Continued montelukast 10 mg tablet 10 mg PO DAILY amlodipine-benazepril 5-20 mg capsule 1 cap PO DAILY Qty: 90 3RF Discharge Orders: Discharge Order (Routine); Ordered 04/25/23 Ordered By: Ramya Stover Diet: Advance to usual diet Activity on Discharge: No heavy lifting Stand Alone Forms: Patient Portal Discharge page Activity Restrictions/Additional Instructions: Apply an ice pack for short intervals (20 minutes on, followed by at least 20 minutes off) for the first 2 days. Do not apply heat. Do not use creams, lotions, or topical antibiotics. These can cause infection or allergic reaction. Ok to shower 48 hours after your surgery. You have steri strips (small white cloth strips) covering your incision- these will fall off ~1 week. No heavy lifting (>10lbs) or strenuous activity! Follow up in office with Dr. Garcia in 1 week. ([phone]) Dressing change: Start Sunday04/27/23- xeroform followed by 4x4 and tape. Change every other day. Call Your Doctor If: -Your temperature exceeds 101.5? F -You experience excessive pain or swelling -You have an unexpected reaction to medication -You have excessive bleeding -You experience continued vomiting/nausea -Your incision begins to separate -Your incision shows signs of infection such as increased redness, swelling, excessive pain, drainage (light blood or clear fluid is normal) or heat Care Plan Goals: Return to baseline health and resume normal activities following recovery period. Health Concerns: former smoker pulmonary nodule HTN Plan of Treatment: s/p VATS, left upper lobe wedge resection F/u in office in 1 week wound care Assessment: Doing well post op. Discharge Date/Time: 04/25/23 14:30
== END 2023-04-25 14:30 | disposition home health service (06) | DRG 121 ==
LOC: HO.SSSA 11:54 → HO.S3 14:17
PROVIDERS: Nurse Practitioner; Physician Assistant Surgical; Admitting Provider Surgery; PCP Internal Medicine; Visit Provider Surgery
PROC: 0BBG4ZX Excision of Left Upper Lung Lobe, Percutaneous Endoscopic Approach, Diagnostic (ICD-10-PCS; principal; 2023-04-23 07:30)
PROC: 0BJ08ZZ Inspection of Tracheobronchial Tree, Via Natural or Artificial Opening Endoscopic (ICD-10-PCS; CPT 31622; 2023-04-23 07:30)
DX: R91.1 Solitary pulmonary nodule (principal); I10 Essential (primary) hypertension; Z88.0 Allergy status to penicillin; Z87.891 Personal history of nicotine dependence; Z79.899 Other long term (current) drug therapy
CPT/HCPCS: 36415; 71045; 80048; 80053; 85025; 85027; 85610; 86850; 86900; 86901; 88307; 88309; 88331; 88332; 93005; 99024; C9290; J0131; J0665; J0736; J1100; J1170; J1644; J2250; J2371; J2405; J2598; J2704; J3010; J7120

== ENCOUNTER → 2023-04-23 10:49 | Outpatient (BNV) | payer BC, SELFPAY | PROVIDERS: Admitting Provider Surgery; PCP Internal Medicine; Visit Provider Nurse Practitioner Acute Care | DX: R91.1 Solitary pulmonary nodule (principal) | CPT/HCPCS: 99222 ==

== ENCOUNTER → 2023-04-23 10:49 | Outpatient (BNV) | payer BC, SELFPAY | PROVIDERS: Admitting Provider Surgery; PCP Internal Medicine; Visit Provider Surgery | DX: R91.1 Solitary pulmonary nodule (principal) | CPT/HCPCS: 32666; 99024; G0180 ==

== ENCOUNTER 2023-05-08 09:22 | Outpatient (AMB) | payer BC, SELFPAY ==
[2023-05-08 09:26] VITALS: BP 170/93; PULSE 99
--- NOTE | 2023-05-08 09:26 | A.OFFVIS_ITS ---
Intake Vital Signs 05/08/23 09:26 Weight 200 lb BP 170/93 H Blood Pressure Location Rt brachial Position Sitting Pulse 99 Intake Visit Reasons: S/P bronchoscopy Intake Note: Patient here to s/p bronchoscopy on 04/23/23. Patient c/o: chest pain. Feels tired this morning. Taking pain meds as needed. Pitch Gatherer Required: No Accompanied by: Self / Same As Patient Allergies Penicillins Allergy (Verified 05/08/23 09:28) patient does not remember Medication List - Last Reconciled 05/08/23 by Morro Garcia MD amlodipine-benazepril 5-20 mg 1 cap PO DAILY docusate sodium (Colace) 100 mg PO BID PRN hydrocodone-acetaminophen 5-325 mg 1 tab PO Q4-6H PRN montelukast 10 mg PO DAILY oxycodone 5 mg PO Q4H PRN oxycodone 5 mg PO Q8H PRN HPI HPI Comments History of Present Illness Details Patient presents for follow-up. She has some improvement in her incisional discomfort. She has no respiratory issues. 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, 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, 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, 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 Housing: Apartment Are you a primary palliative care specialist to a significant other at home: No Do you presently have visiting nurse or other home services: No Alcohol intake: current Alcohol intake frequency: a few times a week Alcohol type: hard liquor Comment: COUNTS CORRECT Patient Tobacco Use Status: Former Tobacco user Quit Date: December 2022 Tobacco use type: Cigarette Cigarette Packs Per Day: 1 Cigarettes Per Day: 20 Years Smoked: onset 17yo, 1ppd x 40yrs, 40pyh- quit 12/2022 e-Cigarette/Vaping Use: Former Use service: No Current occupational status: employed Cognitive needs: No Hearing needs: No Vision needs: Yes Physical Exam Vital Signs: Last Vital Signs Pulse 99 05/08/23 09:26 BP 170/93 H 05/08/23 09:26 Chest Other: Chest breath sounds bilaterally. All wounds clean dry and intact healing uneventfully. Assessment & Plan Assessment & Plan (1) Status post thoracotomy: Code(s): Z98.890 - Other specified postprocedural states Plan Current plan is see the patient in approximately 2 weeks time. Renewal of pain med. Encourage incentive spirometry and ambulation. No strenuous activities. All questions answered. Medications: New hydrocodone-acetaminophen 5-325 mg Partial Fill upon patient request. 1 tab PO Q4-6H PRN 30 tabs 0RF pain Coding Level of Care Code Global (05471) Diagnoses Status post thoracotomy Z98.890
== END 2023-05-08 09:34 | disposition home or self-care (01) ==
PROVIDERS: PCP Internal Medicine; Visit Provider Surgery
DX: Z98.890 Other specified postprocedural states (principal)
CPT/HCPCS: 99024

== ENCOUNTER → 2023-05-08 09:22 | Outpatient (BNVA) | payer BC, SELFPAY | PROVIDERS: PCP Internal Medicine; Visit Provider Surgery ==

== ENCOUNTER 2023-05-18 08:45 | Outpatient (AMB) | payer BC, SELFPAY ==
[2023-05-18 08:49] VITALS: BP 184/93; PULSE 87
--- NOTE | 2023-05-18 08:49 | A.OFFVIS_ITS ---
Intake Vital Signs 05/18/23 08:49 Weight 199 lb BP 184/93 H Blood Pressure Location Rt brachial Position Sitting Pulse 87 Intake Visit Reasons: S/P bronchoscopy Intake Note: Patient here s/p bronchoscopy on 04-23-23. Patient still taking rx pain meds. Patient c/o: pain. Feels tires and fatigued. Would like to extend medical leave. Director Of Curriculum And Instruction Required: No Accompanied by: Self / Same As Patient Allergies Penicillins Allergy (Verified 05/18/23 08:51) patient does not remember HPI HPI Comments History of Present Illness Details Patient presents for 2nd postop visit status post left VATS lung biopsy. Her incisional symptoms have markedly improved. She has no respiratory issues. She is still having difficulty sleeping at night. She is otherwise tolerating her diet and having regular bowel habits. She is increasing her activity level. 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, 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, 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 Housing: Apartment Are you a primary senior care assistant to a significant other at home: No Do you presently have visiting nurse or other home services: No Alcohol intake: current Alcohol intake frequency: a few times a week Alcohol type: hard liquor Comment: COUNTS CORRECT Patient Tobacco Use Status: Former Tobacco user Quit Date: December 2022 Tobacco use type: Cigarette Cigarette Packs Per Day: 1 Cigarettes Per Day: 20 Years Smoked: onset 17yo, 1ppd x 40yrs, 40pyh- quit 12/2022 e-Cigarette/Vaping Use: Former Use service: No Current occupational status: employed Cognitive needs: No Hearing needs: No Vision needs: Yes Physical Exam Vital Signs: Last Vital Signs Pulse 87 05/18/23 08:49 BP 184/93 H 05/18/23 08:49 Chest Other: Left chest incisions all clean dry and intact healing well. Breath sounds bilaterally. Assessment & Plan Assessment & Plan (1) Status post thoracotomy: Code(s): Z98.890 - Other specified postprocedural states Plan Patient is otherwise doing well. She will have annual CT scans surveillance in 1 year's time which he said will be ordered by her medical doctor. We will give her a note to start work in 2 weeks' time with 2 weeks light duty. She will otherwise follow-up p.r.n.. Coding Level of Care Code Global (28386) Diagnoses Status post thoracotomy Z98.890
== END 2023-05-18 09:08 | disposition home or self-care (01) ==
PROVIDERS: PCP Internal Medicine; Visit Provider Surgery
DX: Z98.890 Other specified postprocedural states (principal)
CPT/HCPCS: 99024

== ENCOUNTER → 2023-05-18 08:45 | Outpatient (BNVA) | payer BC, SELFPAY | PROVIDERS: PCP Internal Medicine; Visit Provider Surgery ==

== ENCOUNTER 2023-12-26 07:20 | Outpatient (REF) | payer BC, SELFPAY ==
--- NOTE | ~2023-12-26 | MM_ITS ---
EXAMINATION: MM SCREENING DIGITAL BREAST TOMOSYNTHESIS, BILATERAL CLINICAL INFORMATION: Screening. Asymptomatic. COMPARISON: Mammography: This study is compared with prior exams dating back to 2018. TECHNIQUE: Digital breast tomosynthesis is performed in both the craniocaudal and mediolateral oblique views along with computer-aided detection (CAD). Synthesized 2D images are generated from the tomosynthesis. FINDINGS: There are scattered areas of fibroglandular density (ACR BI-RADS breast composition Category b). There are no significant masses, abnormal calcifications, or other abnormalities. MM/MM tomosynthesis screening BI IMPRESSION: No mammographic evidence of malignancy. ASSESSMENT: BI-RADS BI-RADS 1 - Negative RECOMMENDATION: Routine annual mammography screening. 1 year F/U This examination should not preclude the clinical evaluation of a suspicious palpable abnormality. This patient's information was entered into a reminder system with a target due date for their next mammogram. Electronically signed by: Estela Cordero MD 01/22/2024 11:12 AM EDT
== END 2023-12-26 07:21 | disposition home or self-care (01) ==
LOC: HO.MAMMO 07:20
PROVIDERS: PCP Internal Medicine; Visit Provider Internal Medicine
DX: Z12.31 Encounter for screening mammogram for malignant neoplasm of breast (principal)
CPT/HCPCS: 77063; 77067

== ENCOUNTER → 2023-12-26 07:30 | Outpatient (BNV) | payer BC, SELFPAY | PROVIDERS: PCP Internal Medicine; Visit Provider Radiology Diagnostic Radiology | DX: Z12.31 Encounter for screening mammogram for malignant neoplasm of breast (principal) | CPT/HCPCS: 77063; 77067 ==

== ENCOUNTER 2024-05-27 16:16 | Outpatient (REF) | payer BC, SELFPAY ==
--- NOTE | ~2024-05-27 | CT_ITS ---
CLINICAL HISTORY: Z87.891 - Personal history of nicotine dependence CT lung cancer screening (LDCT) Comparison: CR/SR - XR CHEST 1V - 04/25/23 11:[address]/RI/SR - CT LUNG SCREENING - 03/02/23 15:22 EDT Technique: Axial CT images of the chest using low-dose technique. Effective radiation dose total: DLP 125.1 mGycm, CTDIvol 3.8 mGy. Findings: Postsurgical change of the lingula. Area of linear scarring at the surgical site. No mass lesion or focal infiltrate is identified. No pleural effusion or pneumothorax. Mild vascular calcification of the thoracic aorta. Heart size within normal limits. Small hiatal hernia. No free fluid or free air within the upper abdomen. No acute bony lesions. Impression: Postoperative changes of the lingula with likely postoperative scarring. No suspicious pulmonary nodule. Category 2: Benign appearance or behavior. Continue annual lung cancer screening chest CT suggested. Category 1: Normal; continue annual screening Category 2: Benign appearance or behavior, continue annual screening Category 3: Probably benign, [address] recommended Category 4A: Suspicious, [address] recommended; may consider PET/CT Category 4B: Suspicious, Additional diagnostics and/or tissue sampling recommended Category 4X: Suspicious, Additional diagnostics and/or tissue sampling recommended Category 0: Recalls (incomplete screen due to Incomplete coverage, Noise, Respiratory motion, Expiration, Obscured by acute abnormality) This document has been electronically signed by: Aquilino Gonzalez MD on 05/28/2024 10:07:58
== END 2024-05-27 16:17 | disposition home or self-care (01) ==
LOC: HO.CT 16:16
PROVIDERS: PCP Internal Medicine; Visit Provider Physician Assistant Medical
DX: Z12.2 Encounter for screening for malignant neoplasm of respiratory organs (principal); Z87.891 Personal history of nicotine dependence
CPT/HCPCS: 71271

== ENCOUNTER → 2024-05-27 16:20 | Outpatient (BNV) | payer BC, SELFPAY | PROVIDERS: PCP Internal Medicine; Visit Provider Radiology Diagnostic Radiology | DX: Z87.891 Personal history of nicotine dependence (principal) | CPT/HCPCS: 71271 ==

== ENCOUNTER 2024-12-31 07:25 | Outpatient (REF) | payer BC, SELFPAY | END 2024-12-31 07:26 | disposition home or self-care (01) | LOC: HO.MAMMO 07:25 | PROVIDERS: PCP Internal Medicine; Visit Provider Internal Medicine | DX: Z12.31 Encounter for screening mammogram for malignant neoplasm of breast (principal) | CPT/HCPCS: 77063; 77067 ==

== ENCOUNTER → 2024-12-31 07:30 | Outpatient (BNV) | payer BC, SELFPAY | PROVIDERS: PCP Internal Medicine; Visit Provider Radiology Body Imaging | DX: Z12.31 Encounter for screening mammogram for malignant neoplasm of breast (principal) | CPT/HCPCS: 77063; 77067 ==

== ENCOUNTER 2025-02-06 08:53 | Outpatient (REF) | payer BC, SELFPAY ==
--- NOTE | ~2025-02-06 | MM_ITS ---
EXAMINATION: MM DIAGNOSTIC DIGITAL BREAST TOMOSYNTHESIS, RIGHT Limited right breast ultrasound. CLINICAL INFORMATION: Call back from screening for focal asymmetry in the upper outer right breast. COMPARISON: Mammography: [facility] on PACS. TECHNIQUE: Digital breast tomosynthesis is performed in both the craniocaudal and mediolateral oblique views along with computer-aided detection (CAD). Synthesized 2D images are generated from the tomosynthesis. FINDINGS: There are scattered areas of fibroglandular density. 5 mm focal asymmetry in the upper outer breast persists is a circumscribed oval mass which may be an intramammary lymph node. No suspicious calcifications or other abnormal findings. Targeted color Doppler ultrasound scanning from 9- 2:00 in the superior right breast demonstrates normal fibronodular breast tissue. There is no sonographic abnormal finding. MM/MM tomosynthesis added views R IMPRESSION: Circumscribed oval mass upper outer breast anterior to middle depth which may represent an intramammary lymph node and without sonographic correlate. Recommend 6 month follow-up mammography for further evaluation of stability. ASSESSMENT: BI-RADS Category 3: Probably benign RECOMMENDATION: 6 Month F/U Results were provided to the patient at time of visit by the technologist. This patient's information was entered into a reminder system with a target due date for their next mammogram. Electronically signed by: Nancy Reynolds DO 02/06/2025 10:18 AM EDT
== END 2025-02-06 08:54 | disposition home or self-care (01) ==
LOC: HO.MAMMO 08:53
PROVIDERS: PCP Internal Medicine; Visit Provider Internal Medicine
DX: N64.89 Other specified disorders of breast (principal)
CPT/HCPCS: 76642; 77061; 77065

== ENCOUNTER → 2025-02-06 09:00 | Outpatient (BNV) | payer BC, SELFPAY | PROVIDERS: PCP Internal Medicine; Visit Provider Internal Medicine | DX: R92.8 Other abnormal and inconclusive findings on diagnostic imaging of breast (principal) | CPT/HCPCS: 76642; 77061; 77065 ==